=== PATIENT | male | born 1970 | race Caucasian/White ===

== ENCOUNTER 2018-08-03 08:05 | Emergency (ER) | payer BC ==
--- NOTE | 2018-08-03 08:45 | EDPHYS ---
Physician Documentation [facility] Name: El Zaidi Age: 47 yrs Sex: Male : 1970 Arrival Date: 08/03/2018 Time: 08:10 Bed 18 Private MD: Mehul Millan ED Physician El Avina HPI: 08/03 08:28 This 47 yrs old Male presents to ER via Ambulatory with complaints of Back jr8 Pain, Leg Pain. 08:28 The patient presents with pain that is acute. The symptoms are located in the low back. jr8 Onset: The symptoms/episode began/occurred acutely, yesterday. radiation to right leg. Associated signs and symptoms: The patient has no apparent associated signs or symptoms. The problem was sustained from unknown cause. Modifying factors: The patient symptoms are alleviated by remaining still, the patient symptoms are aggravated by movement. Severity of symptoms: At their worst the symptoms were mild, in the emergency department the symptoms are unchanged. The patient has not experienced similar symptoms in the past. The patient has not recently seen a physician. denies trauma. Historical: - Allergies: 08:13 No Known Allergies; aa5 - PMHx: 08:13 Hypertension; aa5 - PSHx: 08:13 None; aa5 - Immunization history:: Flu vaccine is up to date. - Social history:: Smoking status: Patient/guardian denies using tobacco. - Ebola Screening: : No symptoms or risks identified at this time. ROS: 08:28 Eyes: Negative for injury, pain, redness, and discharge, ENT: Negative for injury, jr8 pain, and discharge, Neck: Negative for injury, pain, and swelling, Cardiovascular: Negative for chest pain, palpitations, and edema, Respiratory: Negative for shortness of breath, cough, wheezing, and pleuritic chest pain, Abdomen/GI: Negative for abdominal pain, nausea, vomiting, diarrhea, and constipation, MS/Extremity: Negative for injury and deformity, Skin: Negative for injury, rash, and discoloration, Neuro: Negative for headache, weakness, numbness, tingling, and seizure. 08:28 Back: Positive for pain at rest, pain with movement, radiated pain, of the right low back. Exam: 08:28 Cardiovascular: Regular rate and rhythm with a normal S1 and S2. No gallops, murmurs, jr8 or rubs. Normal PMI, no JVD. No pulse deficits. Respiratory: Lungs have equal breath sounds bilaterally, clear to auscultation and percussion. No rales, rhonchi or wheezes noted. No increased work of breathing, no retractions or nasal flaring. Abdomen/GI: Soft, non-tender, with normal bowel sounds. No distension or tympany. No guarding or rebound. No evidence of tenderness throughout. Skin: Warm, dry with normal turgor. Normal color with no rashes, no lesions, and no evidence of cellulitis. MS/ Extremity: Pulses equal, no cyanosis. Neurovascular intact. Full, normal range of motion. Neuro: Awake and alert, GCS 15, oriented to person, place, time, and situation. Cranial nerves II-XII grossly intact. Motor strength 5/5 in all extremities. Sensory grossly intact. Cerebellar exam normal. Normal gait. 08:28 Back: pain, that is mild, of the right low back, ROM is painful, with all movement, normal spinal alignment noted, vertebral tenderness, is not appreciated. Vital Signs: 08:12 BP 155 / 84; Pulse 80; Resp 18 S; Temp 97.8(TE); Pulse Ox 95% on R/A; Weight 127.01 kg aa5 (R); Height 6 ft. 3 in. (190.50 cm) (R); Pain 0/10; 08:12 Body Mass Index 35.00 (127.01 kg, 190.50 cm) aa5 08:12 Pt reports pain only with movement aa5 MDM: 08:22 Patient medically screened. jr8 08:28 Data reviewed: vital signs, nurses notes, lab test result(s), and as a result, I will jr8 discharge patient. Data interpreted: Pulse oximetry: on room air is 95 %. Interpretation: normal. Counseling: I had a detailed discussion with the patient and/or guardian regarding: the historical points, exam findings, and any diagnostic results supporting the discharge/admit diagnosis, lab results, the need for outpatient follow up, a family practitioner, to return to the emergency department if symptoms worsen or persist or if there are any questions or concerns that arise at home. 08:42 ED course: Urine clear of blood but noticed 1+ glucose present. Discussed with patient jrMagda that his fingerstick was elevated especially if he had not eaten since yesterday. Needs to follow up with PCP for A1c and glucose test. 08/03 08:40 Order name: Urine Dipstick--Ancillary (enter results) eb 08/03 08:28 Order name: Urine Dipstick-Ancillary (obtain specimen); Complete Time: 08:41 jr8 08/03 08:41 Order name: Finger Stick; Complete Time: 08:41 aa5 Administered Medications: No medications were administered Point of Care Testing: Blood Glucose: 08:41 Blood Glucose: 159 mg/dL; aa5 08:41 Pt reports he has not eaten today. PA notified aa5 Ranges: Critical Glucose Levels:Adult <50 mg/dl or >400 mg/dl <40 mg/dl or >180 mg/dl Disposition: 10:34 Co-signature as Attending Physician, El Avina MD I agree with the assessment and kdr plan of care. Disposition: 08/03/18 08:45 Discharged to Home. Impression: Low back pain, Radiculopathy, lumbar region, Elevated blood glucose level. - Condition is Stable. - Discharge Instructions: Back Pain, Adult, Musculoskeletal Pain, Back Exercises, Dobd-bh-[id number], Heat Therapy. - Prescriptions for Ibuprofen 800 mg Oral Tablet - take 1 tablet by ORAL route every 12 hours As needed take with food; 20 tablet. Cyclobenzaprine 10 mg Oral Tablet - take 1 tablet by ORAL route every 8 hours As needed; 30 tablet. - Medication Reconciliation Form, Thank You Letter, Antibiotic Education, Prescription Opioid Use form. - Follow up: Mehul Millan MD; When: 2 - 3 days; Reason: Recheck today's complaints, Continuance of care, Re-evaluation by your physician. - Problem is new. - Symptoms have improved. Signatures: Dispatcher [employer] EDMS El Avina MD MD [facility] Pat Loredo RN RN aa5 Chu White PA PA jr8 Corrections: (The following items were deleted from the chart) 09:00 08:45 08/03/2018 08:45 Discharged to Home. Impression: Low back pain; Radiculopathy, aa5 lumbar region; Elevated blood glucose level. Condition is Stable. Forms are Medication Reconciliation Form, Thank You Letter, Antibiotic Education, Prescription Opioid Use. Follow up: Mehul Millan; When: 2 - 3 days; Reason: Recheck today's complaints, Continuance of care, Re-evaluation by your physician. Problem is new. Symptoms have improved. jr8
--- NOTE | 2018-08-03 08:45 | ER ---
Nurse's Notes [facility] Name: El Zaidi Age: 47 yrs Sex: Male : 1970 Arrival Date: 08/03/2018 Time: 08:10 Bed 18 Private MD: Mehul Millan Diagnosis: Low back pain;Radiculopathy, lumbar region;Elevated blood glucose level Presentation: 08/03 08:12 Presenting complaint: Patient states: right hip pain and right low back pain radiating aa5 down right leg that began yesterday. Pt denies any known injury. 08:12 Transition of care: patient was not received from another setting of care. Onset of aa5 symptoms was July 2018. Risk Assessment: Do you want to hurt yourself or someone else? Patient reports no desire to harm self or others. Initial Sepsis Screen: Does the patient meet any 2 criteria? No. Patient's initial sepsis screen is negative. Does the patient have a suspected source of infection? No. Patient's initial sepsis screen is negative. Care prior to arrival: None. 08:12 Method Of Arrival: Ambulatory aa5 08:12 Acuity: DEBORA 4 aa5 Historical: - Allergies: 08:13 No Known Allergies; aa5 - PMHx: 08:13 Hypertension; aa5 - PSHx: 08:13 None; aa5 - Immunization history:: Flu vaccine is up to date. - Social history:: Smoking status: Patient/guardian denies using tobacco. - Ebola Screening: : No symptoms or risks identified at this time. Screenin:15 Abuse screen: Denies threats or abuse. Nutritional screening: No deficits noted. aa5 Tuberculosis screening: No symptoms or risk factors identified. Fall Risk None identified. Assessment: 08:15 General: Appears comfortable, Behavior is calm, cooperative. Pain: Complains of pain in aa5 right hip and right low back Pain does not radiate. Pain currently is 0 out of 10 on a pain scale. at worst was 6 out of 10 on a pain scale. Quality of pain is described as sharp, throbbing, Pain began 1 day ago. Is intermittent, Aggravated by increased activity, repositioning. Neuro: Level of Consciousness is awake, alert, obeys commands, Oriented to person, place, time, situation. Cardiovascular: Heart tones S1 S2 present Rhythm is regular. Respiratory: Airway is patent Respiratory effort is even, unlabored, Respiratory pattern is regular, symmetrical. GI: No signs and/or symptoms were reported involving the gastrointestinal system. : No signs and/or symptoms were reported regarding the genitourinary system. Denies burning with urination, inability to void. EENT: No signs and/or symptoms were reported regarding the EENT system. Derm: Skin is pink, warm \T\ dry. Musculoskeletal: Range of motion: intact in all extremities. 09:00 Reassessment: Patient is alert, oriented x 3, equal unlabored respirations, skin aa5 warm/dry/pink. Vital Signs: 08:12 BP 155 / 84; Pulse 80; Resp 18 S; Temp 97.8(TE); Pulse Ox 95% on R/A; Weight 127.01 kg aa5 (R); Height 6 ft. 3 in. (190.50 cm) (R); Pain 0/10; 08:12 Body Mass Index 35.00 (127.01 kg, 190.50 cm) aa5 08:12 Pt reports pain only with movement aa5 ED Course: 08:10 Patient arrived in ED. mr 08:10 Mehul Millan MD is Private Physician. mr 08:12 Arm band placed on Patient placed in an exam room, on a stretcher. aa5 08:12 Patient has correct armband on for positive identification. Placed in gown. Bed in low aa5 position. Call light in reach. Side rails up X2. 08:14 Pat Loredo, RN is Primary Nurse. aa5 08:15 Triage completed. aa5 08:22 Chu White PA is PHCP. jr8 08:22 El Avina MD is Attending Physician. jr8 08:44 Mehul Millan MD is Referral Physician. jr8 09:00 No provider procedures requiring assistance completed. aa5 09:00 Patient did not have IV access during this emergency room visit. aa5 Administered Medications: No medications were administered Point of Care Testing: Blood Glucose: 08:41 Blood Glucose: 159 mg/dL; aa5 08:41 Pt reports he has not eaten today. PA notified aa5 Ranges: Outcome: 08:45 Discharge ordered by . jr8 08:59 Discharged to home ambulatory. aa5 08:59 Condition: stable 08:59 Discharge instructions given to patient, Instructed on discharge instructions, follow up and referral plans. medication usage, Demonstrated understanding of instructions, follow-up care, medications, Prescriptions given X 2. 09:00 Patient left the ED. aa5 Signatures: Ursula Garcia Audri RN RN aa5 Chu White PA PA jr8 Corrections: (The following items were deleted from the chart) 09:14 09:13 No provider procedures requiring assistance completed. aa5 aa5
[2018-08-03 09:58] LABS: Urine Blood NEGATIVE (NEG); Urine Glucose 1+ (NEG); Urine Protein NEGATIVE (NEG); Urine Specific Gravity 1.015 (1.005-1.030)
== END 2018-08-03 09:00 | disposition home or self-care (01) ==
LOC: ER 08:05
DX: M54.16 Radiculopathy, lumbar region (principal); R73.9 Hyperglycemia, unspecified; I10 Essential (primary) hypertension
CPT/HCPCS: 81003; 82962; 99282

== ENCOUNTER 2022-07-14 07:29 | Emergency (ER) | payer BC, SELFPAY ==
--- NOTE | 2022-07-14 08:57 | RAD REPORT ---
EXAM DESCRIPTION: RAD - Hip Right 2 View - 07/14/2022 8:44 am CLINICAL HISTORY: PAIN COMPARISON: No comparisons FINDINGS: [id number] arthritic changes affect the right hip. Crescentic lucent and sclerotic 2 4 mm area along the superior aspect of the right femoral head likely represents avascular necrosis.
--- NOTE | 2022-07-14 09:19 | ER ---
Nurse's Notes [facility] Name: El Zaidi Age: 51 yrs Sex: Male : 1970 Arrival Date: 07/14/2022 Time: 07:32 Bed 11 Private MD: Diagnosis: Avascular necrosis right hip;Pain in right hip;Monoarthritis, not elsewhere classified, right hip;Essential (primary) hypertension Presentation: 07/14 07:36 Chief complaint: Patient states: sharp intermittent right hip pain that radiates to tp1 knee. Pain started 6 months ago and worsens with ambulation. pain rated 10/10. denies trauma. Coronavirus screen: Vaccine status: Patient reports receiving the 2nd dose of the covid vaccine. Ebola Screen: Patient negative for fever greater than or equal to 101.5 degrees Fahrenheit, and additional compatible Ebola Virus Disease symptoms Patient denies exposure to infectious person. Patient denies travel to an Ebola-affected area in the 21 days before illness onset. Initial Sepsis Screen: Does the patient meet any 2 criteria? No. Patient's initial sepsis screen is negative. Does the patient have a suspected source of infection? No. Patient's initial sepsis screen is negative. Risk Assessment: Do you want to hurt yourself or someone else? Patient reports no desire to harm self or others. Onset of symptoms was December 2021. 07:36 Method Of Arrival: Ambulatory tp1 07:47 Acuity: DEBORA 4 tp1 09:11 Acuity: DEBORA 3 jl7 Triage Assessment: 07:43 General: Appears in no apparent distress. uncomfortable, Behavior is calm, cooperative. tp1 Pain: Complains of pain in right hip Pain radiates to right knee Pain currently is 10 out of 10 on a pain scale. Quality of pain is described as sharp, Pain began 6 months. Musculoskeletal: Circulation, motion, and sensation intact. 07:47 Cardiovascular: Capillary refill < 3 seconds in left toes. tp1 Historical: - Home Meds: 07:43 losartan-hydrochlorothiazide 100-25 mg oral tab 1 tab once daily [Active]; atorvastatin tp1 40 mg oral tab 1 tab once daily [Active]; atenolol 100 mg oral tab 1 tab once daily [Active]; metformin 500 mg oral tab 2 times per day [Active]; - PMHx: 07:43 Diabetes mellitus; Hypertension; tp1 - Immunization history:: Client reports receiving the 2nd dose of the Covid vaccine. - Social history:: Smoking status: Patient denies any tobacco usage or history of. Screenin:57 Abuse screen: Denies threats or abuse. Nutritional screening: No deficits noted. jd3 Tuberculosis screening: No symptoms or risk factors identified. Fall Risk Ambulatory Aid- None/Bed Rest/Nurse Assist (0 pts). Gait- Normal/Bed Rest/Wheelchair (0 pts) Mental Status- Oriented to own ability (0 pts). Total Peters Fall Scale indicates No Risk (0-24 pts). Assessment: 07:56 General: Appears in no apparent distress. comfortable, Behavior is calm, cooperative, jd3 appropriate for age. Pain: Complains of pain in right hip Pain radiates to right quadriceps and right knee Quality of pain is described as radiating, sharp, Alleviated by medications, repositioning. Neuro: Hernandez Agitation-Sedation Scale (RASS): 0 - Alert and Calm Level of Consciousness is awake, alert, obeys commands, Oriented to person, place, time, situation. Cardiovascular: Capillary refill < 3 seconds Patient's skin is warm and dry. Respiratory: Airway is patent Respiratory effort is even, unlabored, Respiratory pattern is regular, symmetrical. GI: No signs and/or symptoms were reported involving the gastrointestinal system. : No signs and/or symptoms were reported regarding the genitourinary system. EENT: No signs and/or symptoms were reported regarding the EENT system. Derm: Skin is intact, Skin is dry, Skin is normal, Skin temperature is warm. Musculoskeletal: Circulation, motion, and sensation intact. Range of motion: intact in all extremities. 08:44 Reassessment: Patient appears in no apparent distress at this time. Patient and/or jd3 family updated on plan of care and expected duration. Pain level reassessed. Patient is alert, oriented x 3, equal unlabored respirations, skin warm/dry/pink. 09:17 Reassessment: Patient appears in no apparent distress at this time. Patient and/or jd3 family updated on plan of care and expected duration. Pain level reassessed. Patient is alert, oriented x 3, equal unlabored respirations, skin warm/dry/pink. provider at bedside discussing plan of care. Vital Signs: 07:36 BP 164 / 95; Pulse 96; Resp 16; Temp 98.0; Pulse Ox 99% ; tp1 09:17 BP 142 / 90; Pulse 84; Resp 16; Pulse Ox 97% on R/A; jd3 ED Course: 07:32 Patient arrived in ED. rg4 07:36 Jese Chowdhury DO is Attending Physician. ms3 07:43 Arm band placed on. tp1 07:47 Triage completed. tp1 07:50 Gerardo Gauthier, RN is Primary Nurse. jd3 07:58 Patient has correct armband on for positive identification. Bed in low position. Call jd3 light in reach. Side rails up X 1. Pulse ox on. NIBP on. 08:46 Hip Right 2 View XRAY In Process Unspecified. EDMS 09:16 Manpreet Pruett MD is Referral Physician. ms3 09:26 No provider procedures requiring assistance completed. Patient did not have IV access jd3 during this emergency room visit. Administered Medications: No medications were administered Medication: 07:57 VIS not applicable for this client. jd3 Outcome: 09:18 Discharge ordered by . ms3 09:26 Discharged to home ambulatory. jd3 09:26 Condition: stable 09:26 Discharge instructions given to patient, Instructed on discharge instructions, follow up and referral plans. medication usage, Demonstrated understanding of instructions, follow-up care, medications, Prescriptions given X 1. 09:26 Patient left the ED. jd3 Signatures: Dispatcher [employer] EDCarol Morfin rg4 Maddi Elmore RN RN jl7 Gerardo Gauthier RN RN jd3 Jese Chowdhury DO DO ms3 Marina Salvador RN RN tp1 Corrections: (The following items were deleted from the chart) 07:51 07:36 Chief complaint: Patient states: sharp intermittent hip pain that radiates to tp1 knee. Pain started 6 months ago and worsens with ambulation. pain rated 10/10. denies trauma. tp1
--- NOTE | 2022-07-14 09:19 | EDPHYS ---
Physician Documentation [facility] Name: El Zaidi Age: 51 yrs Sex: Male : 1970 Arrival Date: 07/14/2022 Time: 07:32 Bed 11 Private MD: ED Physician Jese Chowdhury HPI: 07/14 07:47 This 51 yrs old Male presents to ER via Ambulatory with complaints of Leg Pain. ms3 07:47 51-year-old male with past medical history of diabetes, hypertension, hyperlipidemia ms3 presents for right hip pain that has been ongoing for 6 months. Patient states while sitting his pain is a 0/10. Patient states pain is worse when standing and his pain increases to a 10/10. Patient denies fevers, chills, nausea, vomiting, claudication. Patient denies trauma to the right hip.. Historical: - Home Meds: 07:43 losartan-hydrochlorothiazide 100-25 mg oral tab 1 tab once daily [Active]; atorvastatin tp1 40 mg oral tab 1 tab once daily [Active]; atenolol 100 mg oral tab 1 tab once daily [Active]; metformin 500 mg oral tab 2 times per day [Active]; - PMHx: 07:43 Diabetes mellitus; Hypertension; tp1 - Immunization history:: Client reports receiving the 2nd dose of the Covid vaccine. - Social history:: Smoking status: Patient denies any tobacco usage or history of. ROS: 07:47 Constitutional: Negative for fever, and chills. Neck: Negative for injury, pain, and ms3 swelling, Cardiovascular: Negative for chest pain, and palpitations. Respiratory: Negative for shortness of breath, cough, wheezing, and pleuritic chest pain, Abdomen/GI: Negative for abdominal pain, nausea, vomiting, diarrhea, and constipation. 07:47 MS/extremity: Positive for Right hip pain. 07:47 All other systems are negative. Exam: 07:47 Constitutional: This is a well developed, well nourished patient who is awake, alert, ms3 and in no acute distress. Neck: Trachea midline, no cervical lymphadenopathy. Supple, full range of motion without nuchal rigidity, or vertebral point tenderness. No Meningismus. Chest/axilla: Normal chest wall appearance and motion. Nontender with no deformity. Cardiovascular: Regular rate and rhythm with a normal S1 and S2. No gallops, murmurs, or rubs. Normal PMI, no JVD. No pulse deficits. Respiratory: Lungs have equal breath sounds bilaterally, clear to auscultation and percussion. No rales, rhonchi or wheezes noted. No increased work of breathing, no retractions or nasal flaring. Abdomen/GI: Soft, non-tender, with normal bowel sounds. No distension or tympany. No guarding or rebound. No evidence of tenderness throughout. Skin: Warm, dry with normal turgor. Normal color with no rashes, no lesions, and no evidence of cellulitis. 07:47 Musculoskeletal/extremity: Extremities: noted in the Right hip: There is no evidence of contusion, decreased ROM, deformity, ecchymosis, erythema, swelling, tenderness. Vital Signs: 07:36 BP 164 / 95; Pulse 96; Resp 16; Temp 98.0; Pulse Ox 99% ; tp1 09:17 BP 142 / 90; Pulse 84; Resp 16; Pulse Ox 97% on R/A; jd3 MDM: 07:46 Patient medically screened. ms3 07:47 Differential diagnosis: Arthritis versus bursitis versus tendinitis. ms3 09:18 Data reviewed: vital signs, nurses notes, radiologic studies, plain films, and as a ms3 result, I will discharge patient. Counseling: I had a detailed discussion with the patient and/or guardian regarding: the historical points, exam findings, and any diagnostic results supporting the discharge/admit diagnosis, radiology results, the need for outpatient follow up, to return to the emergency department if symptoms worsen or persist or if there are any questions or concerns that arise at home. ED course: Discussed xray findings with patient. Symptoms have been ongoing for 6 months on repeat discussion with patient. patient to follow up with orthopedics as discussed. Discussed with patient he would likely need MRI of his right hip. Patient understands agrees with plan. All questions were answered. Return precautions discussed include worsening symptoms, or any other concerns. 07/14 07:49 Order name: Hip Right 2 View XRAY; Complete Time: 09:07 ms3 Administered Medications: No medications were administered Disposition Summary: 07/14/22 09:18 Discharge Ordered Location: Home ms3 Condition: Stable ms3 Diagnosis - Avascular necrosis right hip ms3 - Pain in right hip ms3 - Monoarthritis, not elsewhere classified, right hip ms3 - Essential (primary) hypertension ms3 Followup: ms3 - With: Manpreet Pruett MD - When: 1 - 2 days - Reason: Recheck today's complaints Discharge Instructions: - Discharge Summary Sheet ms3 - Joint Pain ms3 - Avascular Necrosis ms3 Forms: - Work release form jd3 - Medication Reconciliation Form ms3 - Thank You Letter ms3 - Antibiotic Education ms3 - Prescription Opioid Use ms3 Prescriptions: - Ibuprofen 600 mg Oral Tablet - take 1 tablet by ORAL route every 6 hours As needed take with food; 30 tablet; ms3 Refills: 0, Product Selection Permitted Signatures: Dispatcher [employer] EDJese Grimaldo DO DO ms3 Marina Salvador RN RN tp1
[2022-07-14 09:33] VITALS: TEMP 98
[2022-07-14 09:35] VITALS: BP 142/90; O2SAT 97
== END 2022-07-14 09:26 | disposition home or self-care (01) ==
LOC: ER 07:29
DX: M87.851 Other osteonecrosis, right femur (principal); M13.151 Monoarthritis, not elsewhere classified, right hip; E11.9 Type 2 diabetes mellitus without complications; I10 Essential (primary) hypertension

== ENCOUNTER 2023-03-08 06:03 | Observation (INO) | payer BC, SELFPAY ==
--- NOTE | 2023-01-21 13:14 | EKG ---
Test Date: 2023-01-21 Test Time: 10:45:15 Insulation Professional: MICHEL MEASUREMENT RESULTS: Intervals: Rate: 93 NH: QRSD: 82 QT: 356 QTc: 442 [place]: P: NH: QRS: -14 T: 60 INTERPRETIVE STATEMENTS: Atrial flutter with variable AV block Abnormal ECG Compared to ECG 05/19/2005 15:45:00 Sinus rhythm no longer present Electronically Signed On 01-21-23 13:13:55 ELEVATOR TENDER by Parveen Brewer
--- NOTE | 2023-03-03 09:39 | RAD REPORT ---
EXAM DESCRIPTION: RAD - Chest Pa And Lat (2 Views) - 03/03/2023 9:31 am CLINICAL HISTORY: Pre op pending hip replacement Chest pain. COMPARISON: <Comparisons> FINDINGS: The lungs are clear. The heart is normal in size. No displaced fractures. IMPRESSION: No acute or concerning finding suspected. The USPSTF recommends annual screening for lung cancer with low-dose CT (LDCT) in adults aged 50 to 80 years who have a 20 pack-year smoking history and currently smoke or have quit within the past 15 years.
[2023-03-03 09:42] LABS: Specific Gravity < 1.005 (1.005-1.030); Urine Bilirubin NEGATIVE (Negative); Urine Blood Negative (Negative); Urine Clarity Clear (Clear); Urine Color Colorless (Yellow); Urine Glucose 4+ (Over) (Negative); Urine Protein NEGATIVE (Negative); Urine Urobilinogen Normal (Normal); Urine pH 5.5 (5.0-7.0)
[2023-03-03 09:43] LABS: Absolute Lymphocytes (CBC) 2.4 K/uL (0.7-4.9); Hematocrit 41.4 % (39.6-49.0); Lymphocytes % 28.4 % (15.3-44.8); MCV 95.5 fL (80-100); MPV 7.6 fL (7.6-11.3); RBC Red Blood Cell Count 4.33 M/uL (4.33-5.43)
[2023-03-03 09:46] LABS: Protime INR 0.95
[2023-03-03 10:10] LABS: Albumin 4.2 g/dL (3.4-5.0); Bilirubin Total 0.4 mg/dL (0.2-1.0); Potassium 4.1 mEq/L (3.5-5.1); Protein, Total 8.5 g/dL (6.4-8.2)
[2023-03-07 10:59] LABS: SARS-CoV-2 Antigen Rapid Res Negative (Negative)
[2023-03-08] MEDS ORDERED: CELECOXIB 100 MG CAPSULE ONE (06:26)
[2023-03-08] MEDS ORDERED: CEFAZOLIN SODIUM 2 GM/VIAL ONE (06:27)
[2023-03-08] MEDS ORDERED: GABAPENTIN 100 MG CAP ONE (06:27)
[2023-03-08] MEDS ORDERED: NA CHLORIDE 0.9% 1,000 ML ONE ×2 (06:28→08:35)
[2023-03-08] MEDS ORDERED: ACETAMINOPHEN 500 MG TAB ONE (06:28)
[2023-03-08] MEDS ORDERED: Oxycodone HCl/Acetaminophen 1 TAB TAB ONE (06:28)
[2023-03-08] MEDS ORDERED: BUPIVACAINE 0.75% (PF) 2 ML SP ONE (06:43)
[2023-03-08] MEDS ORDERED: propofoL 200 MG/20 ML VIAL IV ONE ×2 (06:46→07:29)
[2023-03-08] MEDS ORDERED: MIDAZOLAM HCL 2 MG/2 ML INJ ONE (06:47)
[2023-03-08] MEDS ORDERED: MORPHINE SULFATE/PF 1 MG/ML (10 ML AMP) ONE (06:47)
[2023-03-08] MEDS ORDERED: EPHEDRINE SULF 50 MG/ML VIAL ONE ×2 (06:47→08:17)
[2023-03-08] MEDS ORDERED: LIDOCAINE 2% MPF 5 ML VIAL ONE ×2 (06:47→07:16)
[2023-03-08] MEDS ORDERED: EPINEPHRINE/PF 1 MG/ML AMP ONE (06:56)
[2023-03-08] MEDS ORDERED: ONDANSETRON 4 MG/2 ML VIAL ONE (07:03)
[2023-03-08] MEDS: TRANEXAMIC ACID 1,000 MG/10 ML VIAL IV ONE ×2 (07:15→08:33)
[2023-03-08] MEDS ORDERED: Phenylephrine HCl 10 MG/ML 1 ML VIAL ONE ×2 (07:28→11:35)
[2023-03-08] MEDS ORDERED: FENTANYL CITR 100 MCG/2 ML ONE (07:52)
--- NOTE | 2023-03-08 09:39 | RAD REPORT ---
EXAM DESCRIPTION: RAD - Hip Right 1 View - 03/08/2023 9:03 am CLINICAL HISTORY: TOTAL HIP REPLACEMENT COMPARISON: Hip Right 2 View dated 07/14/2022; Chest Pa And Lat (2 Views) dated 03/03/2023 TECHNIQUE: Right hip, cross-table view. FINDINGS: Immediate postsurgical changes of right hip arthroplasty. Increased spacing between the fe moral stem and acetabular components of the arthroplasty hardware. Whether this relates to an interpo sed radiolucent arthroplasty component is uncertain. Expected soft tissue gas. IMPRESSION: As above.
[2023-03-08] MEDS ORDERED: DOCUSATE NA 100 MG CAP PO PRN (09:41)
--- NOTE | 2023-03-08 09:41 | P.BOP ---
Preoperative diagnosis: right hip avn/arthritis Postoperative diagnosis: same Primary procedure: right total hip arthoplasty Estimated blood loss: 150 ccs Anesthesia: General Transferred to: Recovery Room Condition: Good
[2023-03-08 10:22] LABS: Hematocrit 38.2 % (39.6-49.0)
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
[2023-03-08] MEDS ORDERED: methocarbamoL 500 MG TAB PO PRN (11:00)
[2023-03-08] MEDS ORDERED: ONDANSETRON 4 MG/2 ML VIAL IV PRN (11:02)
--- NOTE | 2023-03-08 11:06 | P.CNS ---
Date of Consult: 03/08/23 Reason for Consult: Medical management. Requesting Physician: Gio Sotelo Chief Complaint: Right hip pain History of Present Illness: Patient is a 52-year-old male with a past medical history significant for hypertension, hyperlipidemia, DM 2, alcohol abuse who presents for a planned procedure with his orthopedic surgeon. Patient reported that he has been having right hip pain for the past 1 year. Patient has attempted treatment with medications but symptoms have become worse over time. Patient reported that his functional mobility has greatly reduced due to pain in the right hip. Patient reported that prior to procedure he was using a cane for ambulation. Patient rated pain before procedure as 8/10 in severity and described pain as aching quality. Patient denies any other signs and symptoms. Symptoms are aggravated by weight bearing relieved by nothing. Patient agreed with his surgeon for a right hip arthroplasty and patient presented to the hospital for the planned procedure As scheduled. Patient tolerated procedure and currently resting in bed Allergies No Known Allergies Allergy (Verified 03/08/23 06:48) Home Medications: Atenolol [Tenormin] 100 mg PO DAILY 03/08/23 Atorvastatin Calcium [Lipitor] 40 mg PO BEDTIME 03/08/23 Dapagliflozin Propanediol [Farxiga] 10 mg PO DAILY 03/08/23 Gabapentin 300 mg PO DAILY 03/08/23 Losartan/Hydrochlorothiazide [Losartan-Hctz 100-25 mg Tab] 1 each PO DAILY 03/08/23 Metformin ER [Glucophage ER] 500 mg PO BID 03/08/23 Semaglutide [Ozempic] 2 mg SQ EVERY 7TH DAY 03/08/23 Tramadol HCl [Ultram] 50 mg PO PRN 03/08/23 methocarbamoL [Methocarbamol] 500 mg PO PRN 03/08/23 - Past Medical/Surgical History Diabetic: Yes -: diabetes -: hypertension -: hyperlipidemia - Family History Father Medical History: Liver disease, Other (see notes) Notes: alcholism. passed age 40 Mother Medical History: Heart disease, Lung disease, Other (see notes) Notes: pacemaker, passed mid 60's - Social History Smoking Status: Never smoker Alcohol use: Yes CD- Drugs: No Caffeine use: Yes Place of Residence: Home Review of Systems General: Unremarkable Eyes: Unremarkable ENT: Unremarkable Respiratory: Unremarkable Cardiovascular: Unremarkable Gastrointestinal: Unremarkable Genitourinary: Unremarkable Musculoskeletal: Other (Right hip pain ) Integumentary: Unremarkable Neurological: Unremarkable Lymphatics: Unremarkable Physical Examination Temp Pulse Resp BP Pulse Ox 97.6 F 80 17 123/71 03/08/23 10:27 03/08/23 10:27 03/08/23 10:27 03/08/23 10:27 General: Alert, In no apparent distress, Oriented x3, Cooperative HEENT: Atraumatic, PERRLA, Mucous membr. moist/pink, EOMI, Sclerae nonicteric Neck: Supple, 2+ carotid pulse no bruit, No LAD, Without JVD or thyroid abnormality Respiratory: Clear to auscultation bilaterally, Normal air movement Cardiovascular: No edema, Regular rate/rhythm, Normal S1 S2 Capillary refill: <2 Seconds Gastrointestinal: Normal bowel sounds, Soft and benign, No tenderness Musculoskeletal: No clubbing, Tenderness (Right hip ) Integumentary: No rashes, Other (Right hip incision ) Neurological: Normal speech, Normal tone, Normal affect Lymphatics: No axilla or inguinal lymphadenopathy Laboratory Data (last 24 hrs) 03/08/23 10:10: Hgb 13.0 L, Hct 38.2 L Conclusions/Impression: -- Right hip avascular necrosis\osteoarthritis. Status post right total hip arthroplasty. We will manage pain on current pain medication regimen. Surgeon on board. We will further recommendation from surgeon. --DM2. BS monitoring with sliding scale insulin. --Hypertension. Stable. Continue home medication. --Hyperlipidemia. Continue statin. --Alcohol abuse. Patient reports drinking a six pack of beer every day. Alcohol withdrawal assessment protocol. -- Obesity. Likely secondary to excess calories intake. Patient counseled on weight reduction, diet and exercise therapy. --Elevated LFTs. Mild elevation in LFTs noted. Likely secondary to alcohol abuse. We will continue to monitor liver functions. Continue supportive care. --DVT prophylaxis with SCDs. Continue chemical prophylaxis in a.m. Physician Review: Patient Assessed, Agree with Above Assessment and Plan Critical Care: No
[2023-03-08 11:17] VITALS: BMI 36.9
[2023-03-08 13:53] LABS: Magnesium 1.9 mg/dL (1.6-2.4); Phosphorus 4.4 mg/dL (2.5-4.9)
[2023-03-08] MEDS ORDERED: INFLUENZA VACCINE (for 6+ mo) 0.5 ML DOSE IMVAC ONE (14:00)
[2023-03-08] MEDS: CEFAZOLIN 1 GM in NA CHLORIDE 0.9% 50 ML IVPB SCH (16:57)
--- NOTE | 2023-03-08 19:58 | OP ---
Date of Procedure: 03/08/2023 Surgeon: Gio Sotelo MD Preoperative Diagnosis: Right hip avascular necrosis with arthritic change and severe pain. Postoperative Diagnosis: Right hip avascular necrosis with arthritic change and severe pain. Procedure: Right total hip arthroplasty using the Kelli system with Accolade 2 stem and Douglas c up and dual mobility bearing with ceramic head. Estimated Blood Loss: 150 cc. Complications: There were no complications. Indications For Operation: Mr. Zaidi is a 52-year-old gentleman who came to see me with severe benjie n in his right hip. He has an MRI, which demonstrate AVN as well as a probable labral tear. He was sent to a hip clinical editor who evaluated him and felt that he had a significant amount of arthriti s and that cord decompression or labral repair would not be helpful and therefore, recommend a total hip arthroplasty. This is understood. This was explained to Mr. Zaidi. He is in tremendous pain and opts to have this done as soon as possible. Unfortunately, he does have some medical issues or p recautions and his surgery was delayed as this was worked out. He is now cleared for surgery and ris ks, benefits, and alternatives to this procedure again discussed and he states he understands things as presented and wished to proceed. Description Of Procedure: The patient was taken to the operating room, placed in a seated position. Spinal anesthesia was obtained by Anesthesia staff. Following this, he was then placed supine and g eneral anesthesia was obtained by Anesthesia staff. After this, he was rolled left side down and his right lower extremity was prepped and draped in usual sterile fashion for the procedure. Following this, a standard posterolateral incision was taken down carefully through skin and soft tissues. Met iculous hemostasis being maintained using Bovie electrocautery. This leads down to the fascia and a small stab wound was made in the fascia where the gluteal tendon was palpated to ensure we were at th e correct level. This was followed by division of the fascia until the gluteus christelle fibers were e ncountered, which was then curved gently backward and spread using finger pressure. After the sciati c nerve was palpated and protected and internally was placed, some degree of fat as well as the bursa was then removed to allow good visualization of the external rotators. His hip has limited mobility , especially with extension and internal rotation. However, we were able to take this down as the un it along with the capsule and this was tagged for later repair. After this, the hip was then disloca jordan and a standard neck cut was then performed. The head was sized using ring gauges and the acetabu lum was inspected. Any soft tissue or abnormal material in the acetabulum was then removed. The lab rum was removed and it was then reamed sequentially until there was good bleeding bone. After this, the cup was then placed and felt to have good fit and stability. The attention was then turned to th e femur where the punch box tender was used to lateralize this followed by canal-finding reamer followed by broaching. An x-ray was then taken, which demonstrates the cup appeared to be in good position, loo ks like the stem could go up another size. After this, the trial stem was removed and a 1 size large r stem was then placed, which appears to have good fit and fill with regard to cortical contact and a ppears to be stable to rotational and axial load. After this, the liner was then placed in the cup a nd gently hammered into place. The acetabulum was cleared from the debris and the final stem was the n placed to appropriate depth. It was then trialed with a standard ball. This did not have any shuc k. It was slightly limited in extension, but he was like this before. With full flexion, adduction, he has internal rotation approximately 35 to 40 degrees. Before dislocation it is felt that we shou ld not go any longer and felt to be appropriate. It maybe slightly long, but it should be noted he d oes have AVN on his contralateral side apparently by MRI, so decision was made to provide greater sta bility and decision made to go forward with the standard ball. Standard ball was then applied. It w as then reduced and has stability in the same directions. A jet lavage was used to clean the surgica l site and the external rotators and capsule were then repaired back to the greater trochanter via arelis ne tunnels as well as passing through slightly superior to the trochanter. After this, it was again irrigated and the fascia closed in a watertight fashion using heavy Vicryl sutures. It was again, ir rigated and the skin was closed using interrupted Vicryl sutures, followed by austin. The patient was then placed in Aquacel dressing and taken to re covery room in good condition. /REBECCA Voice ID: [id number] Report ID: [id number]
[2023-03-08] MEDS ORDERED: ATORVASTATIN 40 MG TAB PO SCH (21:00)
[2023-03-08] MEDS: HYDROCODONE/APAP 7.5/325 MG TAB PO PRN (21:14)
[2023-03-09] MEDS: CEFAZOLIN 1 GM in NA CHLORIDE 0.9% 50 ML IVPB SCH ×2 (00:28→09:58)
[2023-03-09] MEDS: HYDROCODONE/APAP 7.5/325 MG TAB PO PRN ×3 (01:20→13:49)
[2023-03-09 02:23] LABS: Specific Gravity 1.021 (1.005-1.030); Urine Bacteria <20 /HPF (<20); Urine Bilirubin NEGATIVE (Negative); Urine Blood Trace (Negative); Urine Clarity Clear (Clear); Urine Color Light-Yellow (Yellow); Urine Glucose 4+ (Over) (Negative); Urine Mucus Slight /HPF (None Seen); Urine Protein TRACE (Negative); Urine Urobilinogen Normal (Normal)
[2023-03-09 04:08] LABS: Hematocrit 34.7 % (39.6-49.0); MCV 95.3 fL (80-100); MPV 7.3 fL (7.6-11.3); RBC Red Blood Cell Count 3.65 M/uL (4.33-5.43)
[2023-03-09 04:29] LABS: Albumin 3.4 g/dL (3.4-5.0); Potassium 3.7 mEq/L (3.5-5.1)
[2023-03-09 05:42] VITALS: TEMP 97.1
[2023-03-09] MEDS ORDERED: POTASSIUM CL SA 10 MEQ TAB PO ONE (09:00)
[2023-03-09] MEDS ORDERED: GABAPENTIN 300 MG CAP PO SCH (09:00)
[2023-03-09] MEDS ORDERED: atenoloL 50 MG TAB PO SCH (09:00)
[2023-03-09] MEDS ORDERED: ENOXAPARIN 40 MG/0.4 ML SQ SCH (09:00)
[2023-03-09] MEDS ORDERED: LOSARTAN/HCTZ 50-12.5 PO SCH (09:00)
[2023-03-09 09:07] VITALS: O2SAT 94
[2023-03-09 09:59] VITALS: BP 133/60
--- NOTE | 2023-03-09 12:26 | RAD REPORT ---
EXAM DESCRIPTION: US - Liver Only - 03/09/2023 9:42 am CLINICAL HISTORY: Elevated liver function test enzymes COMPARISON: 2018 FINDINGS: The liver has an increased echotexture. Hepatopetal flow. A lesion is not visualized. Live r appears mildly enlarged The spleen measures 12.6 centimeters. Echotexture normal Small amount of ascites IMPRESSION: Mild hepatomegaly Borderline splenomegaly Increased hepatic echotexture presumably fatty infiltration
--- NOTE | 2023-03-09 14:20 | P.PN ---
Subjective Date of Service: 03/09/23 Chief Complaint: Right hip pain POD #1 right total hip arthoplasty. He is doing well this morning. His pain is well controlled. He has been working well with PT. He denies any chest pain, shortness of breath, abdominal pain, nausea, or vomiting. Review of Systems 10-point ROS is otherwise unremarkable Musculoskeletal: Leg Pain (right hip) Physical Examination - Vital Signs Temperature: 97.1 F Blood Pressure: 133/60 Pulse: 98 Respirations: 17 Pulse Ox (%): 94 - Physical Exam General: Alert, In no apparent distress, Oriented x3 HEENT: Atraumatic, Mucous membr. moist/pink, Sclerae nonicteric Neck: JVD not distended Respiratory: Clear to auscultation bilaterally, Normal air movement Cardiovascular: No edema, Regular rate/rhythm, Normal S1 S2, No gallops, No rubs, No murmurs Gastrointestinal: Normal bowel sounds, Soft and benign, Non-distended, No tenderness, No rebound, No guarding Musculoskeletal: Other (right hip surgical site is clean, dry, intact) Integumentary: No rashes Neurological: Normal speech, Normal affect - Studies Laboratory Data (last 24 hrs) 03/09/23 07:37: Triglycerides 136, Cholesterol 142, HDL Cholesterol 38 L, Cholesterol/HDL Ratio 3.74 03/09/23 03:40: Sodium 131 L, Potassium 3.7, BUN 25 H, Creatinine 1.14, Glucose 187 H, Total Bilirubin 1.0, AST 152 H, ALT 91 H, Alkaline Phosphatase 74 03/09/23 03:40: WBC 10.40, Hgb 11.9 L, Hct 34.7 L, Plt Count 117 L 03/08/23 16:50: Hgb 12.8 L, Hct 37.0 L Assessment And Plan - Plan DIAGNOSES: # Right Hip Avascular Necrosis/Osteoarthritis s/p Total Right Hip Arthroplasty # Hyperglycemia in Type II Diabetes Mellitus # Elevated LFTs in Alcohol Use Disorder # Hypertension # Hyperlipidemia # Obesity - BMI 36.9 kg/m2 # Microscopic Hematuria RECOMMENDATIONS: - He seems to be improving with PT, consider discharge with Home Health - PRN pain control - For elevated LFTs - obtained lipid panel, Hgb A1c, HCV, and liver ultrasound - He was counseled to follow-up with his PCP (Dr. Millan) for further evaluation - he verbalized understanding - He was noted to have microscopic hematuria, which may be traumatic from recent Cole catheter insertion - He was counseled on the potential for an underlying urologic malignancy and to follow-up with his PCP (Dr. Millan) for further evaluation - he verbalized understanding - Also counseled on alcohol cessation - resources provided Thank you for this consultation. Recommendations have been discussed with Dr. Sotelo. Internal Medicine will continue to follow along while hospitalized. Marcelo Macias M.D.
== END 2023-03-09 16:03 | disposition home or self-care (01) ==
LOC: OR 06:03 → 2ND 10:27
PROVIDERS: ADMIT Orthopaedic Surgery; ATTEND Orthopaedic Surgery
PROC: 0SR903A Replacement of Right Hip Joint with Ceramic Synthetic Substitute, Uncemented, Open Approach (ICD-10-PCS; principal; 2023-03-08 07:00)
DX: M16.11 Unilateral primary osteoarthritis, right hip (principal); M25.551 Pain in right hip; I10 Essential (primary) hypertension; E78.5 Hyperlipidemia, unspecified; E11.9 Type 2 diabetes mellitus without complications; F10.10 Alcohol abuse, uncomplicated; E66.9 Obesity, unspecified; Z68.36 Body mass index [BMI] 36.0-36.9, adult
CPT/HCPCS: 27130; 93005; 85025 ×2; 81001; 36415 ×4; 86900; 83735; 86850; 84100; 85610; 80061; 86901; 82947 ×8; 88305; 88311; 85730; 86920; 85018 ×2; 85014 ×2; 81003; 83036; 80053 ×2; 86803; 71046; 73501; 76705; 97110 ×2; 97116 ×2; 97161; 97530; 87811; J2704 ×2; J0171; J2370; J2001 ×2; J1650; J2250; J3010; J2405 ×2; J7030 ×2; J0690 ×3; 88304; G0378

== ENCOUNTER 2023-03-23 12:32 | Inpatient (IN) | payer BC ==
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
[2023-03-23 13:25] LABS: Absolute Lymphocytes (CBC) 2.4 K/uL (0.7-4.9); Hematocrit 39.4 % (39.6-49.0); Lymphocytes % 25.7 % (15.3-44.8); MCV 94.3 fL (80-100); MPV 6.4 fL (7.6-11.3); Protime INR 1.42; RBC Red Blood Cell Count 4.17 M/uL (4.33-5.43)
[2023-03-23 13:41] LABS: Albumin 4.1 g/dL (3.4-5.0); Bilirubin Direct 0.2 mg/dL (0-0.2); Bilirubin Total 0.6 mg/dL (0.2-1.0); Magnesium 1.9 mg/dL (1.6-2.4); Potassium 3.9 mEq/L (3.5-5.1); Protein, Total 8.6 g/dL (6.4-8.2); Troponin High Sensitivity 7.6 pg/mL (<58.9)
--- NOTE | 2023-03-23 14:09 | RAD REPORT ---
EXAM DESCRIPTION: CT - Chest For Pe Angio - 03/23/2023 1:57 pm CLINICAL HISTORY: Chest pain. DYSPNEA COMPARISON: <Comparisons> TECHNIQUE: CT angiogram of the pulmonary arteries was performed with MIP. All CT scans are performed using dose optimization technique as appropriate and may include automated exposure control or mA/KV adjustment according to patient size. FINDINGS: No evidence of pulmonary thromboembolism. No acute aortic finding demonstrated. The lungs are clear except for linear atelectasis in the right lung base. The lungs are otherwise willa ar. No significant pericardial or pleural fluid. No concerning bony finding. IMPRESSION: No evidence of pulmonary thromboembolism. No acute lung findings.
[2023-03-23] MEDS ORDERED: SOTALOL HCL 80 MG TAB ONE (14:11)
--- NOTE | 2023-03-23 14:31 | EDPHYS ---
Physician Documentation [facility] Name: El Zaidi Age: 52 yrs Sex: Male : 1970 Arrival Date: 03/23/2023 Time: 12:32 Bed 7 Private MD: ED Physician Emile Junior HPI: 03/23 14:31 This 52 yrs old Male presents to ER via Ambulatory with complaints of PER DOCTOR A FIB. rt 13:24 Patient presents to the ED from physicians office for new onset A-fib with rapid rate. rt 2 weeks ago, the patient had a total hip replacement on the right side, was due to have the austin removed today. Patient has had worsening shortness of breath with dyspnea on exertion. Went to pillowcase cleaner office today was found to have A-fib with rapid rate, sent in for further evaluation. Denies any chest pain, acute complaints. Symptoms are moderate in severity, no other aggravating or alleviating factors.. Historical: - Allergies: 13:01 No Known Allergies; ss - PMHx: 13:01 diabetes mellitus; Hypertension; ss - PSHx: 13:01 Hip replacement; ss - Immunization history:: Client reports receiving the 2nd dose of the Covid vaccine. - Social history:: Smoking status: Patient denies any tobacco usage or history of. - Family history:: not pertinent. ROS: 13:24 Constitutional: Negative for fever, chills, and weight loss, Abdomen/GI: Negative for rt abdominal pain, nausea, vomiting, diarrhea, and constipation, MS/Extremity: Negative for injury and deformity, Skin: Negative for injury, rash, and discoloration, Neuro: Negative for headache, weakness, numbness, tingling, and seizure, Psych: Negative for depression, anxiety, suicide ideation, homicidal ideation, and hallucinations. 13:24 Cardiovascular: Positive for palpitations, Negative for chest pain. 13:24 Respiratory: Positive for dyspnea on exertion, shortness of breath. Exam: 13:24 Constitutional: This is a well developed, well nourished patient who is awake, alert, rt and in no acute distress. Head/Face: Normocephalic, atraumatic. Chest/axilla: Normal chest wall appearance and motion. Nontender with no deformity. No lesions are appreciated. Respiratory: Lungs have equal breath sounds bilaterally, clear to auscultation and percussion. No rales, rhonchi or wheezes noted. No increased work of breathing, no retractions or nasal flaring. Abdomen/GI: Soft, non-tender, with normal bowel sounds. No distension or tympany. No guarding or rebound. No evidence of tenderness throughout. Skin: Warm, dry with normal turgor. Normal color with no rashes, no lesions, and no evidence of cellulitis. Neuro: Awake and alert, GCS 15, oriented to person, place, time, and situation. Cranial nerves II-XII grossly intact. Motor strength 5/5 in all extremities. Sensory grossly intact. Cerebellar exam normal. Normal gait. Psych: Awake, alert, with orientation to person, place and time. Behavior, mood, and affect are within normal limits. 13:24 Cardiovascular: Tachycardic, irregularly irregular rhythm, heart sounds normal. 13:24 ECG was reviewed by the Attending Physician. 13:24 Musculoskeletal/extremity: Hip surgical incision is clean, dry, intact with no surrounding erythema, appears to be well-healed.. Vital Signs: 12:55 BP 129 / 80; Pulse 121; Resp 20; Pulse Ox 100% on R/A; Weight 120.2 kg; Height 6 ft. 1 ss in. ; 13:43 BP 114 / 66; Pulse 130; Resp 18 S; Pulse Ox 100% on R/A; iw 14:15 Pulse 116; iw 16:10 BP 111 / 62; Pulse 107; Resp 18; Pulse Ox 98% on R/A; iw 12:55 Body Mass Index 34.96 (120.20 kg, 185.42 cm) ss Procedures: 13:51 Suture/Staple removal: Removed 27 austin, from right hip, site appears well healed, rt dressed with gauze bandage, Patient tolerated well. MDM: 12:42 Patient medically screened. rt 14:30 Differential diagnosis: A-fib, sinus tachycardia, pulmonary embolism. Data reviewed: rt vital signs, nurses notes, lab test result(s), EKG, radiologic studies. Consideration of Admission/Observation Patient was admitted/placed on observation. Management of patient was discussed with the following: Hospitalist: Agrees to admit. Gas Station Attendant: Discussed with patient's pillowcase cleaner, recommends admission, sotalol twice daily and anticoagulation, currently taking Eliquis twice daily.. Test considered but Not performed: X-ray: Obtaining CT scan, x-ray not necessary. Counseling: I had a detailed discussion with the patient and/or guardian regarding: the historical points, exam findings, and any diagnostic results supporting the discharge/admit diagnosis, lab results, radiology results, the need for further work-up and treatment in the hospital. 03/23 12:54 Order name: Basic Metabolic Panel; Complete Time: 13:46 rt 03/23 12:54 Order name: CBC with Diff; Complete Time: 13:46 rt 03/23 12:54 Order name: LFT's; Complete Time: 13:46 rt 03/23 12:54 Order name: Magnesium; Complete Time: 13:46 rt 03/23 12:54 Order name: PT-INR; Complete Time: 13:46 rt 03/23 12:54 Order name: Troponin HS; Complete Time: 13:46 rt 03/23 12:54 Order name: CT Chest For PE Angio; Complete Time: 14:17 rt 03/23 12:54 Order name: EKG; Complete Time: 12:55 rt 03/23 14:26 Order name: Diet Heart Healthy; Complete Time: 14:27 ss 03/23 12:54 Order name: Cardiac monitoring; Complete Time: 13: rt 03/23 12:54 Order name: EKG - Nurse/Tech; Complete Time: 13: rt 03/23 12:54 Order name: IV Saline Lock; Complete Time: 13: rt 03/23 12:54 Order name: Labs collected and sent; Complete Time: 13: rt 03/23 12:54 Order name: O2 Per Protocol; Complete Time: 13: rt 03/23 12:54 Order name: O2 Sat Monitoring; Complete Time: 13:01 rt EC:24 Rate is 122 beats/min. Rhythm is irregularly irregular, A fib with No ectopy, rate rt Related ST and T wave changes. Left axis deviation noted. QRS interval is normal. QT interval is normal. Administered Medications: 14:08 Drug: Sotalol PO 80 mg Route: PO; kc6 Disposition Summary: 03/23/23 14:30 Hospitalization Ordered Hospitalization Status: Observation rt Provider: Jon Schaefer rt Location: Telemetry/MedSurg (observation) rt Condition: Stable rt Problem: new rt Symptoms: are unchanged rt Bed/Room Type: Standard rt Room Assignment: 208(03/23/23 16:31) bd Diagnosis - Unspecified atrial fibrillation rt Forms: - Medication Reconciliation Form rt - SBAR form rt Signatures: Dispatcher [employer] Valorie Guadalupe Shelby RN RN ss Mary Lou Nevarez RN RN kc6 Emile Junior MD MD rt Corrections: (The following items were deleted from the chart) 16:31 14:30 rt bd 16:40 13:01 PMHx: Atrial fibrillation; ss iw
--- NOTE | 2023-03-23 14:31 | ER ---
Nurse's Notes [facility] Name: El Zaidi Age: 52 yrs Sex: Male : 1970 Arrival Date: 03/23/2023 Time: 12:32 Bed 7 Private MD: Diagnosis: Unspecified atrial fibrillation Presentation: 03/23 12:55 Chief complaint: Patient states: Sent by Dr. Brewer for evaluation and treatment of ss Afib. Pt had hip replacement 15 days ago, and was told to follow up with cardiology. EKG today shows AFIB. Pt c/o shortness of breath upon exertion. Coronavirus screen: Client denies travel out of the [place] in the last 14 days. Ebola Screen: Patient denies exposure to infectious person. Patient denies travel to an Ebola-affected area in the 21 days before illness onset. Initial Sepsis Screen: Does the patient meet any 2 criteria? No. Patient's initial sepsis screen is negative. Does the patient have a suspected source of infection? No. Patient's initial sepsis screen is negative. Risk Assessment: Do you want to hurt yourself or someone else? Patient reports no desire to harm self or others. Onset of symptoms is unknown. 12:55 Method Of Arrival: Ambulatory ss 12:55 Acuity: DEBORA 2 ss Historical: - Allergies: 13:01 No Known Allergies; ss - PMHx: 13:01 diabetes mellitus; Hypertension; ss - PSHx: 13:01 Hip replacement; ss - Immunization history:: Client reports receiving the 2nd dose of the Covid vaccine. - Social history:: Smoking status: Patient denies any tobacco usage or history of. - Family history:: not pertinent. Screenin:13 [facility] ED Fall Risk Assessment (Adult) History of falling in the last 3 months, iw including since admission. Abuse screen: Denies threats or abuse. Denies injuries from another. Nutritional screening: No deficits noted. Tuberculosis screening: No symptoms or risk factors identified. Assessment: 13:14 General: Appears in no apparent distress. Behavior is calm, cooperative. Pain: Denies iw pain. Neuro: Level of Consciousness is awake, alert, obeys commands, Oriented to person, place, time, situation, Moves all extremities. Full function. Cardiovascular: Patient's skin is warm and dry. Rhythm is atrial fibrillation with rapid ventricular response. Respiratory: Respiratory effort is even, unlabored, Respiratory pattern is regular, symmetrical. GI: Abdomen is non-distended. Derm: Skin is intact, is healthy with good turgor. Musculoskeletal: Range of motion: intact in all extremities. 14:16 Reassessment: Patient appears in no apparent distress at this time. Patient and/or iw family updated on plan of care and expected duration. Pain level reassessed. Patient is alert, oriented x 3, equal unlabored respirations, skin warm/dry/pink. 16:55 Reassessment: Patient appears in no apparent distress at this time. Patient and/or iw family updated on plan of care and expected duration. Pain level reassessed. Patient is alert, oriented x 3, equal unlabored respirations, skin warm/dry/pink. Vital Signs: 12:55 BP 129 / 80; Pulse 121; Resp 20; Pulse Ox 100% on R/A; Weight 120.2 kg; Height 6 ft. 1 ss in. ; 13:43 BP 114 / 66; Pulse 130; Resp 18 S; Pulse Ox 100% on R/A; iw 14:15 Pulse 116; iw 16:10 BP 111 / 62; Pulse 107; Resp 18; Pulse Ox 98% on R/A; iw 12:55 Body Mass Index 34.96 (120.20 kg, 185.42 cm) ss ED Course: 12:33 Patient arrived in ED. ts1 12:33 Emile Junior MD is Attending Physician. rt 12:40 Sally Fallon, RN is Primary Nurse. iw 13:01 Triage completed. ss 13:01 Arm band placed on right wrist. ss 13:13 Initial lab(s) drawn, by wi, sent to lab. Inserted saline lock: 20 gauge in right iw antecubital area, using aseptic technique. Blood collected. 13:14 Patient has correct armband on for positive identification. Placed in gown. Bed in low iw position. Call light in reach. Side rails up X2. Client placed on continuous cardiac and pulse oximetry monitoring. NIBP monitoring applied. 13:58 CT Chest For PE Angio In Process Unspecified. EDMS 14:29 Jon Schaefer MD is Hospitalizing Provider. rt 16:55 No provider procedures requiring assistance completed. Patient admitted, IV remains in iw place. Administered Medications: 14:08 Drug: Sotalol PO 80 mg Route: PO; kc6 Medication: 13:13 VIS not applicable for this client. iw Outcome: 14:30 Decision to Hospitalize by Provider. rt 16:55 Admitted to Tele accompanied by tech, via wheelchair, room 208, Report called to shreya Aguilera RN 16:55 Condition: good 16:55 Discharge instructions given to patient, family, Instructed on the need for admit. 16:56 Patient left the ED. iw Signatures: Dispatcher [employer] EDSally Salamanca RN RN iw Smirch, Shelby, RN RN ss Mary Lou Nevarez RN RN kc6 Emile Junior MD MD rt Hyacinth Valdes PAS PAS ts1 Corrections: (The following items were deleted from the chart) 16:40 13:01 PMHx: Atrial fibrillation; [facility]
[2023-03-23] MEDS ORDERED: ACETAMINOPHEN 325 MG TABLET PO PRN (15:54)
[2023-03-23] MEDS ORDERED: HYDROCODONE/APAP 10/325 TAB PO PRN (15:54)
[2023-03-23] MEDS ORDERED: ONDANSETRON 4 MG/2 ML VIAL IV PRN (16:04)
--- NOTE | 2023-03-23 16:10 | P.HP ---
Certification for Inpatient Patient admitted to: Observation With expected LOS: <2 Midnights Patient will require the following post-hospital care: None Practitioner: I am a practitioner with admitting privileges, knowledge of patient current condition, hospital course, and medical plan of care. Services: Services provided to patient in accordance with Admission requirements found in Title 42 Section 412.3 of the Code of Federal Regulations Patient History Date of Service: 03/23/23 Reason for admission: Abnormal EKG results. History of Present Illness: Patient is a 52-year-old male with a past medical history significant for hypertension, hyperlipidemia, DM 2, alcohol abuse who presents with complaint of abnormal EKG findings. Patient recently had a right hip replacement and was doing his therapy today. Physical therapist checked his pulse rate and pulse was noted to be in the 150s. Patient followed up with his encoding clerk in his office and patient was noted to have atrial fibrillation with RVR on EKG at the encoding clerk office. A-fib with RVR. Patient reported associated signs and symptoms of shortness of breath with exertion. Patient denies any other signs and symptoms. Symptoms are aggravated or relieved by nothing. Patient was referred to come to the ER for further management. Allergies No Known Allergies Allergy (Verified 03/08/23 06:48) Home Medications: Atenolol [Tenormin] 100 mg PO BEDTIME 03/08/23 Atorvastatin Calcium [Lipitor] 40 mg PO BEDTIME 03/08/23 Dapagliflozin Propanediol [Farxiga] 10 mg PO DAILY 03/08/23 Gabapentin 300 mg PO TID PRN 03/08/23 Losartan/Hydrochlorothiazide [Losartan-Hctz 100-25 mg Tab] 1 each PO DAILY 03/08 Metformin ER [Glucophage ER] 500 mg PO BEDTIME 03/08/23 Semaglutide [Ozempic] 2 mg SQ EVERY 7TH DAY 03/08/23 Tramadol HCl [Ultram] 50 mg PO Q6H PRN 03/08/23 methocarbamoL [Methocarbamol] 500 mg PO TID PRN 03/08/23 Apixaban [Eliquis] 5 mg PO BID 03/23/23 - Past Medical/Surgical History Diabetic: Yes -: diabetes -: hypertension -: hyperlipidemia -: TOTAL RIGHT HIP SURGERY - Family History Father -: Liver disease, Other (see notes) Notes: alcholism. passed age 40 Mother -: Heart disease, Lung disease, Other (see notes) Notes: pacemaker, passed mid 60's - Social History Smoking Status: Never smoker Alcohol use: Yes CD- Drugs: No Caffeine use: Yes Place of Residence: Home Review of Systems General: Unremarkable Eyes: Unremarkable ENT: Unremarkable Respiratory: SOB with Excertion Cardiovascular: Unremarkable Gastrointestinal: Unremarkable Genitourinary: Unremarkable Musculoskeletal: Other (Right hip pain.), Unremarkable Integumentary: Unremarkable Neurological: Unremarkable Lymphatics: Unremarkable Physical Examination - Physical Exam General: Alert, In no apparent distress, Oriented x3 HEENT: Atraumatic, PERRLA, Mucous membr. moist/pink, EOMI, Sclerae nonicteric Neck: Supple, 2+ carotid pulse no bruit, No LAD, Without JVD or thyroid abnormality Respiratory: Clear to auscultation bilaterally, Normal air movement Cardiovascular: No edema, Regular rate/rhythm, Normal S1 S2 Capillary refill: <2 Seconds Gastrointestinal: Normal bowel sounds, No tenderness Musculoskeletal: No clubbing, No swelling, No contractures, No tenderness Integumentary: No rashes, No significant lesion Neurological: Normal speech, Normal tone, Normal affect Lymphatics: No axilla or inguinal lymphadenopathy - Studies Laboratory Data (last 24 hrs) 03/23/23 13:09: PT 15.6 H, INR 1.42 03/23/23 13:09: WBC 9.30, Hgb 13.2 L, Hct 39.4 L, Plt Count 374 03/23/23 13:09: Sodium 138, Potassium 3.9, BUN 22 H, Creatinine 1.01, Glucose 170 H, Magnesium 1.9, Total Bilirubin 0.6, AST 45 H, ALT 57, Alkaline Phosphatase 129 H Assessment and Plan - Plan -- A-fib with RVR. Office Helper consulted. Recommended placing patient on sotalol. Continue Eliquis. Telemetry to monitor for any malignant arrhythmia. Further management Per encoding clerk. --DM2. BS monitoring with sliding scale insulin. --Hypertension. Stable. Continue home medication. --Hyperlipidemia. Continue statin. --Alcohol abuse. Patient has a history of alcohol abuse. Alcohol withdrawal assessment protocol. --Right hip OA. Status post right hip replacement. Patient on physical therapy at home. Physical therapy consulted. Will await further recommendations. -- Obesity. Likely secondary to excess calories intake. Patient counseled on weight reduction, diet and exercise therapy. --Elevated LFTs. Mild elevation in LFTs noted. Likely secondary to alcohol abuse. We will continue to monitor liver functions. Continue supportive care. --DVT prophylaxis with Eliquis. Discharge Plan: Home Plan to discharge in: 48 Hours - Advance Directives Does patient have a Living Will: No Does patient have a Durable POA for Healthcare: No - Code Status/Comfort Care Code Status Assessed: Yes Physician Review: Patient Assessed, Agree with Above Assessment and Plan Critical Care: No
[2023-03-23 17:22] VITALS: BMI 34.9
[2023-03-23] MEDS: SOTALOL HCL 80 MG TAB PO SCH (17:30)
[2023-03-23 18:12] LABS: Thyroid Stimulating Hormone 1.31 uIU/mL (0.358-3.740)
[2023-03-23] MEDS ORDERED: D50W 25 GM/50 ML SYRINGE IV PRN (19:16)
[2023-03-23] MEDS ORDERED: GLUCAGON 1 MG/VIAL IM PRN (19:16)
[2023-03-23] MEDS ORDERED: methocarbamoL 500 MG TAB PO PRN (19:17)
[2023-03-23] MEDS: INSULIN -REGULAR HUMAN 50 UNIT/0.5 ML ML SQ SCH (21:00)
[2023-03-23] MEDS ORDERED: atenoloL 50 MG TAB PO SCH (21:00)
[2023-03-23] MEDS: ATORVASTATIN 40 MG TAB PO SCH (21:14)
[2023-03-23] MEDS: GABAPENTIN 300 MG CAP PO PRN (21:14)
[2023-03-23] MEDS: APIXABAN 5 MG TABLET PO SCH (21:14)
[2023-03-23] MEDS: TRAMADOL HCL 50 MG TAB PO PRN (22:39)
[2023-03-24 03:56] LABS: Absolute Lymphocytes (CBC) 4.1 K/uL (0.7-4.9); Hematocrit 36.4 % (39.6-49.0); Lymphocytes % 33.6 % (15.3-44.8); MCV 93.8 fL (80-100); MPV 7.2 fL (7.6-11.3); RBC Red Blood Cell Count 3.88 M/uL (4.33-5.43)
[2023-03-24 04:08] LABS: Potassium 3.5 mEq/L (3.5-5.1)
[2023-03-24] MEDS ORDERED: POTASSIUM CL SA 10 MEQ TAB PO ONE ×2 (04:46→07:43)
[2023-03-24] MEDS: GABAPENTIN 300 MG CAP PO PRN ×2 (05:29→20:49)
[2023-03-24] MEDS: SOTALOL HCL 80 MG TAB PO SCH ×2 (05:29→17:08)
[2023-03-24] MEDS: TRAMADOL HCL 50 MG TAB PO PRN ×2 (05:34→20:49)
--- NOTE | 2023-03-24 06:55 | P.PN ---
Date of Service: 03/24/23 Subjective: no SOB, no chest pain this morning hip pain is tolerable with pain medication no acute events overnight ROS: 10 point ROS as noted above, otherwise negative Physical Exam: GEN: Alert, oriented, NAD HEENT: Normal conjunctiva, sclera anicteric CV: Irregularly Irregular rate and rhythm, no edema Pulm: Nonlabored respirations on room air ABD: Soft, nontender, nondistended MSK: No joint tenderness Neuro: Normal speech, normal affect vitals reviewed Problem List: A-fib with RVR, new Right hip OA s/p recent arthroplasty Elevated LFTs Alcohol abuse DM2 Hypertension Hyperlipidemia Obesity A-fib with RVR Monitor on telemetry Apparel Sales Leader consulted continue sotalol pts HR remains >110-120s, up to 150s this morning with PT; reportedly asymptomatic at that time however later in early afternoon, noted some dyspnea on exertion when ambulating to bathroom in room; HR: 130s discussed with Dr. Brewer, started metoprolol 25mg in addition to sotalol Continue Eliquis echo pending Right hip OA s/p right hip replacement 03/08 - Patient on physical therapy at home PT consulted Elevated LFTs Mild elevation in LFTs noted. Likely secondary to alcohol abuse. continue to monitor liver function Alcohol abuse - Patient has a history of alcohol abuse. Alcohol withdrawal assessment protocol. no drink in ~2 weeks (before surgery) DM2 - sliding scale insulin Hypertension - Stable. Continue home medication Hyperlipidemia - Continue statin Obesity - Likely secondary to excess calories intake. Patient counseled on weight reduction, diet and exercise therapy. VTE: Eliquis Code: Full Dispo: Home 1-2 days
[2023-03-24] MEDS: INSULIN -REGULAR HUMAN 50 UNIT/0.5 ML ML SQ SCH ×4 (07:30→21:16)
[2023-03-24] MEDS: APIXABAN 5 MG TABLET PO SCH ×2 (08:16→20:50)
[2023-03-24] MEDS: ASPIRIN 81 MG CHEWABLE TABLET PO SCH (08:16)
[2023-03-24] MEDS ORDERED: LOSARTAN/HCTZ 50-12.5 PO SCH (09:00)
[2023-03-24 11:43] LABS: Specific Gravity > 1.030 (1.005-1.030); Urine Bilirubin NEGATIVE (Negative); Urine Blood Negative (Negative); Urine Clarity Clear (Clear); Urine Color Light-Yellow (Yellow); Urine Glucose 4+ (Over) (Negative); Urine Protein NEGATIVE (Negative); Urine Urobilinogen Normal (Normal)
--- NOTE | 2023-03-24 13:03 | CON ---
Date of Consultation: 03/24/2023 Reason For Consultation: Atrial fibrillation with rapid ventricular response. History Of Present Illness: Mr. Zaidi is 52. Developed atrial fibrillation after hip surgery 2 we eks ago. He was placed on beta-blockers and Eliquis. He also takes losartan, hydrochlorothiazide, a nd Farxiga, as well as, metformin and Ozempic at home. He does have a significant history of alcohol intake. Has a history of dyslipidemia, hypertension, diabetes. Had atrial fibrillation yesterday t hat was recurrent. Dr. Brewer sent him to the hospital for further evaluation and treatment. He was placed on sotalol 80 mg p.o. b.i.d. Eliquis was continued. The rest of the medicine will continue. Patient really has no symptoms except for palpitation. Denied any syncope. Echocardiogram is pend ing today. Allergies: NONE. Medications: Listed earlier. Review of Systems: Negative. Social History: Negative. Family History: Noncontributory. Physical Examination: General: He is still in atrial fibrillation after 2 doses of sotalol. Vital Signs: Heart rate is 80, afebrile. HEENT: Negative. Neck: Supple with no bruit. Chest: Clear. Cardiac: Revealed atrial fibrillation. Abdomen: Benign. Extremities: No clubbing, cyanosis, or edema. Diagnostic Data: All within normal limits except for the EKG showing AFib. Impression And Plan: Recurrent atrial fibrillation, on sotalol. Patient can go home after his third dose. We will continue his Eliquis. If he stays in atrial fibrillation for about a week or 2, we m ay have to do a cardioversion. I will leave that up to Dr. Brewer. His cholesterol, diabetes, and h ypertension are stable. We will see what the echo shows. He can be discharged today. NB/MODL Voice ID: [id number] Report ID: [id number]
--- NOTE | 2023-03-24 14:22 | P.DS ---
Admission Date: 03/23/23 Discharge Date: 03/25/23 Disposition: ROUTINE DISCHARGE Reason for Admission: Abnormal EKG results. Consultations: Cardiology - Dr. Eng/Dr. Brewer Brief History of Present Illness: 52yo M, PMH: hypertension, hyperlipidemia, DM 2, alcohol abuse Patient presents with complaint of abnormal EKG findings. Patient recently had a right hip replacement and was doing his therapy today. Physical therapist c hecked his pulse rate and pulse was noted to be in the 150s. 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 A-fib with RVR. Patient reported associated signs and symptoms of shortness of breath with exertion. Patient denies any other signs and symptoms. Symptoms are aggravated or relieved by nothing. Patient was referred to come to the ER for further management. Hospital Course: Problem List: A-fib with RVR Right hip OA Elevated LFTs Alcohol abuse DM2 Hypertension Hyperlipidemia Obesity Patient presents with atrial fibrillation with RVR associated with palpitations and dyspnea on exertion. Troponins were negative x3, no acute abnormalities noted on CT chest, and EKG at Dr. Lane office noted A-fib with RVR. Echocardiogram was obtained and unremarkable. He was given 80mg sotalol and continued with heart rates 100-120s. Cardiology was consulted and recommended increasing sotalol to 120mg, no further inpatient testing, and follow up in the office. He had improvement of rate control and was deemed stable for discharge home. Consideration for electrical cardioversion if remains in afib on follow up with Cardiology in ~1-2 weeks. Continue physical therapy for right hip replacement. Follow-up PCP within 1 week Cardiology in ~1-2 weeks Discharged to continue Eliquis 5 mg twice a day, new prescription given. New prescription for sotalol 120 mg twice a day. Discontinue atenolol. Monitor blood pressure at home, restart losartan/HCTZ once blood pressure is consistently greater than 140/80 Otherwise he is to continue other home meds as previously prescribed. Physical Exam: GEN: Alert, oriented, NAD HEENT: Normal conjunctiva, sclera anicteric CV: regular rate and rhythm, no edema Pulm: Nonlabored respirations on room air ABD: Soft, nontender, nondistended Neuro: Normal speech, normal affect Vital Signs/Physical Exam: Temp Pulse Resp BP Pulse Ox 97.1 F 91 H 14 139/71 98 03/24/23 08:00 03/24/23 08:00 03/24/23 08:00 03/24/23 08:00 03/24/23 08:00 Laboratory Data at Discharge: WBC 12.20 thou/uL (4.3-10.9) H 03/24/23 02:43 Hgb 12.0 g/dL (13.6-17.9) L D 03/24/23 02:43 Hct 36.4 % (39.6-49.0) L 03/24/23 02:43 Plt Count 323 thou/uL (152-406) 03/24/23 02:43 PT 15.6 SECONDS (9.5-12.5) H 03/23/23 13:09 INR 1.42 03/23/23 13:09 Sodium 137 mEq/L (136-145) 03/24/23 02:43 Potassium 3.5 mEq/L (3.5-5.1) 03/24/23 02:43 BUN 23 mg/dL (7-18) H 03/24/23 02:43 Creatinine 0.87 mg/dL (0.70-1.30) 03/24/23 02:43 Glucose 146 mg/dL (74-106) H 03/24/23 02:43 Phosphorus 4.0 mg/dL (2.5-4.9) 03/23/23 17:30 Magnesium 2.0 mg/dL (1.6-2.4) 03/23/23 17:30 Total Bilirubin 0.6 mg/dL (0.2-1.0) 03/23/23 13:09 AST 45 U/L (15-37) H 03/23/23 13:09 ALT 57 U/L (16-61) 03/23/23 13:09 Alkaline Phosphatase 129 U/L (45-117) H 03/23/23 13:09 Home Medications: Atorvastatin Calcium [Lipitor] 40 mg PO BEDTIME 03/08/23 Dapagliflozin Propanediol [Farxiga] 10 mg PO DAILY 03/08/23 Gabapentin 300 mg PO TID PRN 03/08/23 Losartan/Hydrochlorothiazide [Losartan-Hctz 100-25 mg Tab] 1 each PO DAILY 03/08/23 Metformin ER [Glucophage ER*] 500 mg PO BEDTIME 03/08/23 Semaglutide [Ozempic] 2 mg SQ EVERY 7TH DAY 03/08/23 Tramadol HCl [Ultram] 50 mg PO Q6H PRN 03/08/23 methocarbamoL [Methocarbamol] 500 mg PO TID PRN 03/08/23 Apixaban [Eliquis] 5 mg PO BID 30 Days #60 tab 03/25/23 Sotalol HCl [Sotalol AF] 120 mg PO BID 30 Days #60 tab 03/25/23 New Medications: Apixaban [Eliquis] 5 mg PO BID 30 Days #60 tab Sotalol HCl [Sotalol AF] 120 mg PO BID 30 Days #60 tab Physician Discharge Instructions: Patient presents with atrial fibrillation with RVR associated with palpitations and dyspnea on exertion. Troponins were negative x3, no acute abnormalities noted on CT chest, and EKG at Dr. Lane office noted A-fib with RVR. Echocardiogram was obtained and unremarkable. He was given 80mg sotalol and continued with heart rates 100-120s. Cardiology was consulted and recommended increasing sotalol to 120mg, no further inpatient testing, and follow up in the office. He had improvement of rate control and was deemed stable for discharge home. Consideration for electrical cardioversion if remains in afib on follow up with Cardiology in ~1-2 weeks. Continue physical therapy for right hip replacement. Follow-up PCP within 1 week Cardiology in ~1-2 weeks Discharged to continue Eliquis 5 mg twice a day, new prescription given. New prescription for sotalol 120 mg twice a day. Discontinue atenolol. Monitor blood pressure at home, restart losartan/HCTZ once blood pressure is consistently greater than 140/80 Otherwise he is to continue other home meds as previously prescribed. Followup: Mehul Millan MD [Primary Care Provider] - 1 Week (ecall to schedule an appointment in 1 week) Parveen Brewer MD [ACTIVE - CAN ADMIT] - 1-2 Weeks (call to schedule an appointment) Time spent managing pt's care (in minutes): 45
--- NOTE | 2023-03-24 14:28 | EKG ---
Test Date: 2023-03-23 Test Time: 12:57:21 Relief Manager: ANDREAS MEASUREMENT RESULTS: Intervals: Rate: 122 HI: QRSD: 92 QT: 290 QTc: 413 [place]: P: HI: QRS: -36 T: 95 INTERPRETIVE STATEMENTS: Atrial fibrillation Left axis deviation Nonspecific ST and T wave abnormality, probably digitalis effect Abnormal ECG Compared to ECG 01/21/2023 10:45:15 Left-axis deviation now present ST (T wave) deviation now present Atrial flutter no longer present Electronically Signed On 03-24-23 14:26:16 CDT by Parveen Brewer
[2023-03-24] MEDS ORDERED: METOPROLOL TAR 25 MG TAB PO ONE (15:20)
[2023-03-24] MEDS: ATORVASTATIN 40 MG TAB PO SCH (20:50)
[2023-03-25 03:49] LABS: Potassium 3.7 mEq/L (3.5-5.1)
[2023-03-25] MEDS: SOTALOL HCL 80 MG TAB PO SCH (05:59)
[2023-03-25] MEDS ORDERED: METOPROLOL TAR 25 MG TAB PO SCH (06:00)
[2023-03-25] MEDS ORDERED: SOTALOL HCL 80 MG TAB PO ONE (06:45)
--- NOTE | 2023-03-25 06:49 | ECHO ---
HEIGHT: 6 ft 1 in WEIGHT: 265 lb 0 oz DATE OF STUDY: 03/24/[address]: Elena Lopez 2-DIMENSIONAL: YES M.MODE: YES DOPPLER: YES COLOR FLOW: YES TDS: NO PORTABLE: YES DEFINITY: NO BUBBLE STUDY: NO DIAGNOSIS: ATRIAL FIBRILLATION WITH RAPID VENTRICULAR RESPONSE CARDIAC HISTORY: CATHERIZATION: NO SURGERY: NO PROSTHETIC VALVE: NO PACEMAKER: NO MEASUREMENTS (cm) DIASTOLIC (NORMALS) SYSTOLIC (NORMALS) IVSd 1.3 (0.6-1.2) LA Diam 2.8 (1.9-4.0) LVEF 69% LVIDd 4.0 (3.5-5.7) LVIDs 2.4 (2.0-3.5) %FS 38% LVPWd 1.3 (0.6-1.2) Ao Diam 2.3 (2.0-3.7) 2 DIMENSIONAL ASSESSMENT: RIGHT ATRIUM: NORMAL LEFT ATRIUM: NORMAL RIGHT VENTRICLE: NORMAL LEFT VENTRICLE: NORMAL TRICUSPID VALVE: NORMAL MITRAL VALVE: NORMAL PULMONIC VALVE: NORMAL AORTIC VALVE: NORMAL PERICARDIAL EFFUSION: NONE AORTIC ROOT: NORMAL LEFT VENTRICULAR WALL MOTION: NORMAL DOPPLER/COLOR FLOW: NORMAL COMMENTS: 1. NORMAL LEFT VENTRICULAR EJECTION FRACTION 60-65%. 2. NORMAL WALL MOTION. 3. ATRIAL FIBRILLATION. TECHNOLOGIST: Benjamin MENDIOLA
[2023-03-25] MEDS: ASPIRIN 81 MG CHEWABLE TABLET PO SCH (08:14)
[2023-03-25] MEDS: TRAMADOL HCL 50 MG TAB PO PRN (08:14)
[2023-03-25] MEDS: GABAPENTIN 300 MG CAP PO PRN (08:14)
[2023-03-25] MEDS: APIXABAN 5 MG TABLET PO SCH (08:14)
[2023-03-25] MEDS: INSULIN -REGULAR HUMAN 50 UNIT/0.5 ML ML SQ SCH (08:17)
[2023-03-25 08:25] VITALS: BP 152/92; TEMP 97
[2023-03-25 08:53] VITALS: O2SAT 99
[2023-03-25] MEDS ORDERED: POTASSIUM CL SA 10 MEQ TAB PO ONE (09:00)
--- NOTE | 2023-03-25 11:38 | PN ---
Mr. Zaidi is being seen for atrial fibrillation. He had failed beta-sofi, was admitted, was star alysia on sotalol. He received 3 dosages and continued to have a heart rate of 120. However, overnight he converted to sinus rhythm. Echocardiogram was within normal limit. Case was discussed with Dr. Schaefer. Mr. Zaidi can go home but I think he should be on a higher dose of sotalol at 120 b.i.d., h ome today. We will see him in the office in the next week or 2. SHERRIE/REBECCA Voice ID: [id number] Report ID: [id number]
[2023-03-25] MEDS ORDERED: SOTALOL HCL 80 MG TAB PO SCH (18:00)
== END 2023-03-25 09:50 | disposition home health service (06) | DRG 310 ==
LOC: ER 12:32 → ERHOLD 15:53 → 2ND 16:45 → OBSVTOIN 03-24 18:21
PROVIDERS: ADMIT Hospitalist; ATTEND Hospitalist
DX: I48.91 Unspecified atrial fibrillation (principal); I10 Essential (primary) hypertension; E11.9 Type 2 diabetes mellitus without complications; M16.11 Unilateral primary osteoarthritis, right hip; F10.10 Alcohol abuse, uncomplicated; E78.5 Hyperlipidemia, unspecified; R79.89 Other specified abnormal findings of blood chemistry; E66.9 Obesity, unspecified; E66.09 Other obesity due to excess calories; Z68.35 Body mass index [BMI] 35.0-35.9, adult; Z71.3 Dietary counseling and surveillance; Z79.01 Long term (current) use of anticoagulants; Z79.84 Long term (current) use of oral hypoglycemic drugs; Z79.899 Other long term (current) drug therapy; Z96.641 Presence of right artificial hip joint; Z82.49 Family history of ischemic heart disease and other diseases of the circulatory system
CPT/HCPCS: 36415; 71275; 80048; 80076; 81003; 82947; 83735; 84100; 84439; 84443; 84484; 85025; 85610; 93005; 93306; 97116; 97161; 99285; G0378; J1815; Q9967

== ENCOUNTER 2023-06-23 13:52 | Observation (INO) | payer BC ==
--- OUTSIDE RECORDS SUMMARY | 2023-06-23 13:55 | XMS REPORT | Continuity of Care Document ---
:1970 Author Organization [facility] t Address [address] [place] [address] [place] [address] Care Team Providers Name Role Phone Unknown, Physician Primary Care Physician Unavailable Mehul Millan Attending Clinician Unavailable Ilan Freed MD Attending Clinician Payers Payer Name Policy Type Policy Number Effective Date Expiration Date S giuliana BCBSTX PPO AND [id number] 2022 OUT OF STATE 70 00:00:00 Blue Cross 6 [id number] [facility] Blue Shield 70 - [facility] Center Problems Condition Condition Condition [...] 08:20:00 l Active 00:00: Silver 04/01/2012 00 [facility] [id number] Pain, [place] n [id number] joint, Spirit hip, right - [facility] [id number] [place] [id number] secondary Spirit osteoarthr - [facility] Allergies, Adverse Reactions, Alerts This patient has no known allergies or adverse reactions. Social History Social Habit Start Date Stop Date Quantity Comments Source History of Tobacco [facility] - Use [facility] Exposure to 2022-12-11 2022-12-21 Not sure [facility] SARS-CoV-2 (event) 00:00:00 20:49:00 Sex Ass[birth year] At [birth year] [facility] 00:00:00 00:00:00 Smoking Status Start Date Stop Date Source Tobacco smoking consumption [place] [facility] unknown Never Smoker [facility] Medications Ordered Filled Start Stop Current Ordering [...] 5-19 on Allowed l 16:36: Silver Weber lisinopril Yes Substituti M emoria 5-19 on [...] Comments Source height 2022-12-01 09:15:00 74 [in_i] [facility] - [facility] weight 2022-12-01 09:15:00 290 [facility]_av[facility] temperature 2022-12-01 09:15:00 98.0 [degF] [facility] bmi 2022-12-01 09:15:00 37.23 kg/m2 [facility] - [facility] blood pressure 2022-12-01 09:15:00 138 mm[Hg] [facility] - systolic [facility] blood pressure 2022-12-01 09:15:00 89 mm[Hg] [facility] - diastolic [facility] height 2022-11-24 15:00:00 74 [in_i] [facility] - [facility] weight 2022-11-24 15:00:00 290 [lb_av] [facility] temperature 2022-11-24 15:00:00 98.2 [degF] [facility] bmi 2022-11-24 15:00:00 37.23 kg/m2 [facility] blood pressure 2022-11-24 15:00:00 140 mm[Hg] [facility] - systolic [facility] blood pressure 2022-11-24 15:00:00 82 mm[Hg] Common [facility] Height 2012-04-01 14:24:00 190.50 cm [facility] Weight 2012-04-01 14:24:00 [facility] Procedures This patient has no known procedures. Encounters Start End Encounter Admission Attending Care Care Encounter Source Date/Time Date/Time Type Type Clinicians Facility Department ID 2023-03-30 Outpatient [place], STLMLC STLMLC [id number] Common 13:50:04 Mehul [id number] [facility] 2022-12-23 Outpatient [facility] [id number] [place] 14:38:21 [id number] [facility] 2022-12-22 Outpatient [facility] [id number] [place] 06:13:25 [id number] [facility] 2022-12-21 Outpatient [facility] [id number] [place] 20:31:38 [id number] [facility] 2022-11-30 Outpatient [place], STLMLC STLC [id number] Common 14:36:04 Mehul [id number] [facility] 2022-11-26 Outpatient [facility] [id number] [place] 08:30:00 [id number] [facility] 2022-11-24 Outpatient [place], STTEJALLC STLMLC [id number] Common 14:55:04 Mehul [id number] [facility] 2022-12-22 2022-12-[address] [facility] [id number] [place] 09:30:00 09:53:07 Visit Ilan BOLAND [id number] Health [facility] [id number] MEDICAL [id number] [address] 2022-12-22 2022-12-22 Outpatient [facility] [id number] [place] 00:00:00 00:00:00 Health 2022-12-22 2022-12-22 (TEL) STLMLC STLMLC [id number] Co m[place] 00:00:00 00:00:00 [facility] 2022-12-01 2022-12-01 OFFICE STLMLC STLMLC [id number] Co m[place] 00:00:00 00:00:00 VISIT EST Spir it PT LEVEL 3 [facility] 2022-11-24 2022-11-[address] [facility] [id number] Co mmon 00:00:00 00:00:00 VISIT NEW [facility] it PT LEVEL 3 - [facility] 2012-04-01 2012-04-01 Emergency [place] [address] [id number] [facility] 09:15:00 15:00:00 [facility] 00 l Silver 2012-04-01 2012-04-01 Emergency [place]avo [place] [address] [id number] [facility] 09:15:00 15:00:00 [facility] 00 l Silver Results This patient has no known results.
[2023-06-23 14:19] LABS: Absolute Lymphocytes (CBC) 2.7 K/uL (0.7-4.9); Hematocrit 42.6 % (39.6-49.0); Lymphocytes % 24.4 % (15.3-44.8); MCV 91.3 fL (80-100); MPV 7.5 fL (7.6-11.3); Platelets 146 thou/uL (152-406); RBC Red Blood Cell Count 4.67 M/uL (4.33-5.43)
[2023-06-23 14:22] LABS: Protime INR 0.98
[2023-06-23] MEDS ORDERED: dilTIAZem HCL 25 MG/5 ML VIAL IV ONE (14:28)
[2023-06-23 14:46] LABS: Albumin 4.1 g/dL (3.4-5.0); Bilirubin Direct 0.1 mg/dL (0-0.2); Bilirubin Indirect, Calculated 0.3 mg/dL (0.2-0.8); Bilirubin Total 0.4 mg/dL (0.2-1.0); Magnesium 2.1 mg/dL (1.6-2.4); Potassium 4.2 mEq/L (3.5-5.1); Protein, Total 8.1 g/dL (6.4-8.2); Thyroid Stimulating Hormone 1.26 uIU/mL (0.358-3.740); Troponin High Sensitivity 12.2 pg/mL (<58.9)
--- NOTE | 2023-06-23 14:46 | RAD REPORT ---
EXAM DESCRIPTION: RADChest Single View06/23/2023 2:32 pm CLINICAL HISTORY: SOB COMPARISON: Chest Pa And Lat (2 Views) dated 03/03/2023 TECHNIQUE: Portable AP view of the chest. FINDINGS: The lungs are clear. No pneumothorax or effusion. The cardiomediastinal contours are unrem arkable. IMPRESSION: No acute cardiopulmonary process.
[2023-06-23] MEDS ORDERED: DILTIAZEM INJ 125 MG/25 ML 125 MG in NA CHLORIDE 0.9% 100 ML IV SCH (15:00)
--- NOTE | 2023-06-23 15:21 | ER ---
Nurse's Notes [facility] Name: El Zaidi Age: 52 yrs Sex: Male : 1970 Arrival Date: 06/23/2023 Time: 13:52 Bed 4 Private MD: Diagnosis: Paroxysmal atrial fibrillation-RVR Presentation: 06/23 14:06 Chief complaint: Patient states: "At 10am today, I started feeling funny and getting mb9 SOB. I called Dr. Brewer and they told me to come here because of my history of going into A Fib". Coronavirus screen: Vaccine status: Patient reports receiving the 2nd dose of the covid vaccine. Ebola Screen: No symptoms or risks identified at this time. Initial Sepsis Screen: Does the patient meet any 2 criteria? No. Patient's initial sepsis screen is negative. Does the patient have a suspected source of infection? No. Patient's initial sepsis screen is negative. Risk Assessment: Do you want to hurt yourself or someone else? Patient reports no desire to harm self or others. Onset of symptoms was June 23, 2023. 14:06 Acuity: DEBORA 2 mb9 14:06 Method Of Arrival: Wheelchair mb9 Triage Assessment: 14:08 General: Appears uncomfortable, Behavior is cooperative. Pain: Denies pain. Neuro: mb9 Hernandez Agitation-Sedation Scale (RASS): 0 - Alert and Calm Level of Consciousness is awake, alert, obeys commands, Oriented to person, place, time, situation, Appropriate for age. Cardiovascular: Reports chest pain, palpitations, shortness of breath. Respiratory: Airway is patent Respiratory effort is even, unlabored, Respiratory pattern is tachypnea. Derm: Skin is pink, warm \\T\\ dry. Historical: - Allergies: 14:07 No Known Allergies; mb9 - Home Meds: 14:30 atorvastatin 40 mg Oral tab 1 tab once daily [Active]; losartan-hydrochlorothiazide ko1 100-25 mg Oral tab 1 tab once daily [Active]; Ozempic 2 mg/dose (8 mg/3 mL) subcutaneous Pen Injector every week [Active]; Farxiga 10 mg oral tablet daily [Active]; Sotalol Oral 2 times per day [Active]; - PMHx: 14:07 diabetes mellitus; Hypertension; Atrial fibrillation; mb9 - PSHx: 14:07 hip replacement; mb9 - Immunization history:: Adult Immunizations up to date. - Social history:: Smoking status: Patient denies any tobacco usage or history of. Screenin:10 Abuse screen: Denies threats or abuse. Denies injuries from another. Nutritional ss screening: No deficits noted. Tuberculosis screening: Never had TB. 15:30 [facility] ED Fall Risk Assessment (Adult) History of falling in the last 3 months, ko1 including since admission No falls in past 3 months (0 pts) Confusion or Disorientation No (0 pts) Intoxicated or Sedated No (0 pts) Impaired Gait No (0 pts) Mobility Assist Device Used No (0 pt) Altered Elimination No (0 pt) Score/Fall Risk Level 0 - 2 = Low Risk Oriented to surroundings, Maintained a safe environment, Educated pt \\T\\ family on fall prevention, incl call for assistance when getting out of bed, Assessed \\T\\ reinforced patient's understanding of fall precautions, Provided non-skid footwear, Hourly rounding (assess needs \\T\\ fall precautionary measures) done, Used ambulatory aids as needed (educated on \\T\\ assisted with), Used gait belt as appropriate. Assessment: 14:10 Cardiovascular: Rhythm is atrial fibrillation with rapid ventricular response. ss Vital Signs: 14:06 Pulse 145; Resp 23; Temp 98.2(O); Pulse Ox 98% on R/A; Weight 95.25 kg; Height 5 ft. 11 mb9 in. ; 14:10 Pulse 127; ss 14:30 BP 143 / 97; Pulse 87; Resp 16; Pulse Ox 96% ; ko1 14:35 BP 150 / 103; Pulse 80; Resp 16; Pulse Ox 96% ; ko1 15:00 BP 149 / 85; Pulse 97; Resp 18; Pulse Ox 96% ; ko1 15:30 BP 136 / 84; Pulse 89; Resp 18; Pulse Ox 97% ; ko1 15:40 BP 131 / 88; Pulse 89; Resp 16; Pulse Ox 95% on R/A; ko1 14:06 Body Mass Index 29.29 (95.25 kg, 180.34 cm) mb9 Vitals: 14:30 Cardiac Rhythm Assessment Atrial fibrillation. ko1 14:35 Cardiac Rhythm Assessment Atrial fibrillation. ko1 15:30 Cardiac Rhythm Assessment Atrial fibrillation. ko1 15:40 Cardiac Rhythm Assessment Atrial fibrillation. ko1 [employer] Coma Score: 14:14 Eye Response: spontaneous(4). Motor Response: obeys commands(6). Verbal Response: snw oriented(5). Total: 15. ED Course: 13:54 Patient arrived in ED. im 14:00 EKG done, by ED staff, reviewed by Deanne OWENS. Inserted saline lock: 18 gauge mb9 in right antecubital area, using aseptic technique. 14:02 Kalie Russell MD is Attending Physician. sp3 14:03 Deanne Yu FNP-C is PHCP. snw 14:06 Arm band placed on. mb9 14:07 Triage completed. mb9 14:12 Samantha West, RN is Primary Nurse. ko1 14:15 Basic Metabolic Panel Sent. ko1 14:15 CBC with Diff Sent. ko1 14:15 LFT's Sent. ko1 14:15 Magnesium Sent. ko1 14:15 NT PRO-BNP Sent. ko1 14:15 PT-INR Sent. ko1 14:15 Troponin HS Sent. ko1 14:34 XRAY Chest (1 view) In Process Unspecified. EDMS 15:19 Nicanor Nelson is Hospitalizing Provider. snw 15:30 Patient has correct armband on for positive identification. Bed in low position. Call ko1 light in reach. Side rails up X2. Provided Education on: cardizem drip. Client placed on continuous cardiac and pulse oximetry monitoring. NIBP monitoring applied. library monitor on. Door closed. Noise minimized. Lights dimmed. Warm blanket given. 15:30 No provider procedures requiring assistance completed. ko1 16:24 Patient admitted, IV remains in place. ko1 Administered Medications: 14:25 Drug: Diltiazem IVP 10 mg Route: IVP; Site: right antecubital; ko1 15:25 Drug: Diltiazem IV 5 mg/hr Route: IV; Rate: 5 mg/hr; Site: right antecubital; ko1 15:40 Follow up: Response: No adverse reaction; Cardiac rhythm is unchanged; Rate change 10 ko1 mg/hr Medication: 15:30 VIS not applicable for this client. ko1 Outcome: 15:21 Decision to Hospitalize by Provider. snw 16:24 Admitted to ICU accompanied by nurse, via stretcher, room 1, on monitor, with chart, ko1 Report called to LYNNETTE Metcalf 16:24 Condition: stable 16:24 Instructed on the need for admit, Demonstrated understanding of instructions. 16:31 Patient left the ED. ko1 Signatures: Dispatcher [employer] EDMS Deanne Yu, WIRE TWISTING MACHINE OPERATOR-C WIRE TWISTING MACHINE OPERATOR-Csnw Imelda Perry RN RN ss Kalie Russell MD MD sp3 Samantha West RN RN ko1 Amarilys Sanches RN RN mb9 Comfort Evans Corrections: (The following items were deleted from the chart) 14:20 14:15 THYROID STIMULAT HORMONE+C.LAB.BRZ drawn and sent. ko1 EDMS 14:35 14:30 Home Meds: atenolol 100 mg Oral tab 1 tab once daily; ko1 ko1 14:35 14:30 Home Meds: metformin 500 mg Oral tab 2 times per day; ko1 ko1 14:35 14:30 Home Meds: Eliquis oral; ko1 ko1
--- NOTE | 2023-06-23 15:21 | EDPHYS ---
Physician Documentation [facility] Name: El Zaidi Age: 52 yrs Sex: Male : 1970 Arrival Date: 06/23/2023 Time: 13:52 Bed 4 Private MD: ED Physician Kalie Russell HPI: 06/23 14:09 This 52 yrs old Male presents to ER via Wheelchair with complaints of Sent by Dr.Raslan chowdhury for A-fib. 14:09 The patient has shortness of breath at rest, and the patient has a history of a. fib. snw Onset: The symptoms/episode began/occurred at 10:00. Duration: The symptoms are continuous. Severity of symptoms: At their worst the symptoms were moderate. The patient has experienced similar episodes in the past, since initial episode a couple of months ago. sent per Dr. Brewer. 15:22 The patient's shortness of breath is aggravated by etoh abuse. snw Historical: - Allergies: 14:07 No Known Allergies; mb9 - Home Meds: 14:30 atorvastatin 40 mg Oral tab 1 tab once daily [Active]; losartan-hydrochlorothiazide ko1 100-25 mg Oral tab 1 tab once daily [Active]; Ozempic 2 mg/dose (8 mg/3 mL) subcutaneous Pen Injector every week [Active]; Farxiga 10 mg oral tablet daily [Active]; Sotalol Oral 2 times per day [Active]; - PMHx: 14:07 diabetes mellitus; Hypertension; Atrial fibrillation; mb9 - PSHx: 14:07 hip replacement; mb9 - Immunization history:: Adult Immunizations up to date. - Social history:: Smoking status: Patient denies any tobacco usage or history of. ROS: 14:08 Constitutional: Negative for fever, chills, and weight loss, Eyes: Negative for injury, snw pain, redness, and discharge, ENT: Negative for injury, pain, and discharge, Neck: Negative for injury, pain, and swelling, Cardiovascular: Negative for chest pain, palpitations, and edema, Abdomen/GI: Negative for abdominal pain, nausea, vomiting, diarrhea, and constipation, Back: Negative for injury and pain, : Negative for injury, bleeding, discharge, and swelling, MS/Extremity: Negative for injury and deformity, Skin: Negative for injury, rash, and discoloration, Neuro: Negative for headache, weakness, numbness, tingling, and seizure, Psych: Negative for depression, anxiety, suicide ideation, homicidal ideation, and hallucinations. 14:08 Respiratory: Positive for shortness of breath, at rest. Exam: 14:07 Constitutional: This is a well developed, well nourished patient who is awake, alert, snw and in no acute distress. Head/Face: Normocephalic, atraumatic. Eyes: Pupils equal round and reactive to light, extra-ocular motions intact. Lids and lashes normal. Conjunctiva and sclera are non-icteric and not injected. Cornea within normal limits. Periorbital areas with no swelling, redness, or edema. ENT: Nares patent. No nasal discharge, no septal abnormalities noted. Tympanic membranes are normal and external auditory canals are clear. Oropharynx with no redness, swelling, or masses, exudates, or evidence of obstruction, uvula midline. Mucous membranes moist. Neck: Trachea midline, no thyromegaly or masses palpated, and no cervical lymphadenopathy. Supple, full range of motion without nuchal rigidity, or vertebral point tenderness. No Meningismus. Chest/axilla: Normal chest wall appearance and motion. Nontender with no deformity. No lesions are appreciated. 14:07 Respiratory: Lungs have equal breath sounds bilaterally, clear to auscultation and percussion. No rales, rhonchi or wheezes noted. No increased work of breathing, no retractions or nasal flaring. Abdomen/GI: Soft, non-tender, with normal bowel sounds. No distension or tympany. No guarding or rebound. No evidence of tenderness throughout. Back: No spinal tenderness. No costovertebral tenderness. Full range of motion. Skin: Warm, dry with normal turgor. Normal color with no rashes, no lesions, and no evidence of cellulitis. MS/ Extremity: Pulses equal, no cyanosis. Neurovascular intact. Full, normal range of motion. Neuro: Awake and alert, GCS 15, oriented to person, place, time, and situation. Cranial nerves II-XII grossly intact. Motor strength 5/5 in all extremities. Sensory grossly intact. Cerebellar exam normal. Normal gait. Psych: Awake, alert, with orientation to person, place and time. Behavior, mood, and affect are within normal limits. 14:07 Cardiovascular: Rate: tachycardic, Rhythm: irregularly irregular, Pulses: no pulse deficits are appreciated, Heart sounds: normal, Edema: is not appreciated, JVD: is not appreciated. Vital Signs: 14:06 Pulse 145; Resp 23; Temp 98.2(O); Pulse Ox 98% on R/A; Weight 95.25 kg; Height 5 ft. 11 mb9 in. ; 14:10 Pulse 127; ss 14:30 BP 143 / 97; Pulse 87; Resp 16; Pulse Ox 96% ; ko1 14:35 BP 150 / 103; Pulse 80; Resp 16; Pulse Ox 96% ; ko1 15:00 BP 149 / 85; Pulse 97; Resp 18; Pulse Ox 96% ; ko1 15:30 BP 136 / 84; Pulse 89; Resp 18; Pulse Ox 97% ; ko1 15:40 BP 131 / 88; Pulse 89; Resp 16; Pulse Ox 95% on R/A; ko1 14:06 Body Mass Index 29.29 (95.25 kg, 180.34 cm) mb9 Krystin Coma Score: 14:14 Eye Response: spontaneous(4). Motor Response: obeys commands(6). Verbal Response: snw oriented(5). Total: 15. MDM: 14:07 Patient medically screened. snw 14:10 ED course: Pt has not missed sotalol or eliquis.. snw 14:14 ED course: Dr. Brewer's service notified of pt arrival. snw 14:53 Data reviewed: vital signs, nurses notes, lab test result(s), EKG, radiologic studies. snw ED course: Cardizem 10mg converted pt temporarily will start drip. 15:16 Differential diagnosis: Anemia Anxiety Reaction asthma, Unstable Angina arrythmia. Data snw interpreted: Pulse oximetry: on room air is 96 %. Interpretation: normal. Management of patient was discussed with the following: Fiberglass Technician: Dr. Brewer in ED, pt's rate is improved post Cardizem push, will start drip. Dr. Brewer would like Sotalol, Eliquis continued and agrees with Cardizem drip for now.. Management of patient was discussed with the following: Hospitalist: Dr. Nelson. Counseling: I had a detailed discussion with the patient and/or guardian regarding: the historical points, exam findings, and any diagnostic results supporting the discharge/admit diagnosis, lab results, radiology results, the need for further work-up and treatment in the hospital. 15:22 Response to treatment: the patient's symptoms have markedly improved after treatment. snw 06/23 14:04 Order name: Basic Metabolic Panel; Complete Time: 14:47 snw 06/23 14:04 Order name: CBC with Diff; Complete Time: 14:33 snw 06/23 14:04 Order name: LFT's; Complete Time: 14:47 snw 06/23 14:04 Order name: Magnesium; Complete Time: 14:47 snw 06/23 14:04 Order name: NT PRO-BNP; Complete Time: 14:47 snw 06/23 14:04 Order name: PT-INR; Complete Time: 14:33 snw 06/23 14:04 Order name: Troponin HS; Complete Time: 14:47 snw 06/23 14:20 Order name: Thyroid Stimulating Hormone; Complete Time: 14:47 EDMS 06/23 16:23 Order name: Basic Metabolic Panel EDMS 06/23 16:23 Order name: Basic Metabolic Panel EDMS 06/23 16:23 Order name: CBC with Automated Diff EDMS 06/23 16:23 Order name: CBC with Automated Diff EDMS 06/23 16:23 Order name: Lipid Profile EDMS 06/23 16:23 Order name: Lipid Profile EDMS 06/23 16:23 Order name: Magnesium EDMS 06/23 16:23 Order name: Magnesium EDMS 06/23 16:23 Order name: Phosphorus EDMS 06/23 16:23 Order name: Phosphorus EDMS 06/23 16:23 Order name: Troponin High Sensitivity EDMS 06/23 16:23 Order name: Troponin High Sensitivity EDMS 06/23 16:23 Order name: Troponin High Sensitivity EDMS 06/23 16:23 Order name: Troponin High Sensitivity EDMS 06/23 14:04 Order name: XRAY Chest (1 view); Complete Time: 14:47 snw 06/23 14:04 Order name: EKG; Complete Time: 14:05 snw 06/23 16:23 Order name: 60g Consistent Carbohydrate (ADA 1800/2000) EDMS 06/23 14:04 Order name: Cardiac monitoring; Complete Time: 14:05 snw 06/23 14:04 Order name: EKG - Nurse/Tech; Complete Time: 14:05 snw 06/23 14:04 Order name: IV Saline Lock; Complete Time: 14:06 snw 06/23 14:04 Order name: Labs collected and sent; Complete Time: 14:06 snw 06/23 14:04 Order name: O2 Per Protocol; Complete Time: 14:05 snw 06/23 14:04 Order name: O2 Sat Monitoring; Complete Time: 14:05 snw EC:05 Rate is 129 beats/min. Rhythm is irregularly irregular. QT interval is normal. T waves snw are Normal. Clinical impression: Atrial Fibrillation. Administered Medications: 14:25 Drug: Diltiazem IVP 10 mg Route: IVP; Site: right antecubital; ko1 15:25 Drug: Diltiazem IV 5 mg/hr Route: IV; Rate: 5 mg/hr; Site: right antecubital; ko1 15:40 Follow up: Response: No adverse reaction; Cardiac rhythm is unchanged; Rate change 10 ko1 mg/hr Disposition Summary: 06/23/23 15:21 Hospitalization Ordered Hospitalization Status: Observation snw Provider: Nicanor Nelson snlaila Location: Intensive Care Unit snw Condition: Stable snw Problem: an acute exacerbation snw Symptoms: have improved snw Bed/Room Type: Standard snw Room Assignment: 1-(06/23/23 15:59) dw Diagnosis - Paroxysmal atrial fibrillation - RVR snw Forms: - Medication Reconciliation Form snw - SBAR form snw Signatures: Dispatcher [employer] Maria C Arroyo RN RN dw Waters, Shelly, FNP-C FRACTIONATING STILL OPERATOR-Csnw Samantha West RN RN ko1 Amarilys aSnches RN RN mb9 Corrections: (The following items were deleted from the chart) 14:20 14:12 THYROID STIMULAT HORMONE+C.LAB.BRZ ordered. [facility] 14:35 14:30 Home Meds: atenolol 100 mg Oral tab 1 tab once daily; ko1 ko1 14:35 14:30 Home Meds: metformin 500 mg Oral tab 2 times per day; ko1 ko1 14:35 14:30 Home Meds: Eliquis oral; ko1 ko1 15:59 15:21 snw dw
--- NOTE | 2023-06-23 15:33 | P.HP ---
Certification for Inpatient Patient admitted to: Observation With expected LOS: <2 Midnights Practitioner: I am a practitioner with admitting privileges, knowledge of patient current condition, hospital course, and medical plan of care. Services: Services provided to patient in accordance with Admission requirements found in Title 42 Section 412.3 of the Code of Federal Regulations Patient History Date of Service: 06/23/23 Reason for admission: Shortness of breath History of Present Illness: 52-year-old gentleman with a history of diabetes, hypertension and atrial fibrillation was directed to the emergency department by his cyber security analyst Dr. Brewer to be evaluated for rapid atrial fibrillation because patient was experiencing shortness of breath and palpitation. Patient was noted to be in rapid atrial fibrillation with heart rate up to 140 in the ED. Initial troponin negative, checks x-ray showed no acute disease. He was given a dose of IV Cardizem after which patient spontaneously converted to sinus rhythm. Rapid atrial fibrillation reoccurred in the ED and patient started on Cardizem drip. Dr. Brewer saw and evaluated patient in the ED and recommended hospitalization for further management. Patient is admitted to the ICU. Allergies No Known Allergies Allergy (Verified 03/08/23 06:48) Home Medications: Atorvastatin Calcium [Lipitor] 40 mg PO BEDTIME 03/08/23 Dapagliflozin Propanediol [Farxiga] 10 mg PO DAILY 03/08/23 Losartan/Hydrochlorothiazide [Losartan-Hctz 100-25 mg Tab] 1 each PO DAILY 03/08/23 Metformin ER [Glucophage ER*] 500 mg PO BEDTIME 03/08/23 Semaglutide [Ozempic] 2 mg SQ EVERY 7TH DAY 03/08/23 Apixaban [Eliquis] 5 mg PO BID 30 Days #60 tab 03/25/23 Sotalol HCl [Sotalol AF] 120 mg PO BID 30 Days #60 tab 03/25/23 - Past Medical/Surgical History Diabetic: Yes -: diabetes -: hypertension -: hyperlipidemia -: TOTAL RIGHT HIP SURGERY - Family History Father -: Liver disease, Other (see notes) Notes: alcholism. passed age 40 Mother -: Heart disease, Lung disease, Other (see notes) Notes: pacemaker, passed mid 60's - Social History Alcohol use: Yes CD- Drugs: No Caffeine use: Yes Review of Systems Other: Except as documented, all other systems reviewed and negative. Physical Examination - Physical Exam General: Alert, In no apparent distress, Oriented x3 HEENT: Mucous membr. moist/pink, Sclerae nonicteric Neck: Supple, JVD not distended Respiratory: Clear to auscultation bilaterally, Normal air movement Cardiovascular: No edema, Normal S1 S2, No murmurs, Irregular heart rate/rhythm Capillary refill: <2 Seconds Gastrointestinal: Normal bowel sounds, Soft and benign, Non-distended, No tenderness Musculoskeletal: No swelling Integumentary: No rashes, No cyanosis Neurological: Normal speech, Normal strength at 5/5 x4 extr, Cranial nerves 3-12 intact Lymphatics: No axilla or inguinal lymphadenopathy - Studies Laboratory Data (last 24 hrs) 06/23/23 06/23/23 06/23/23 14:05 14:05 14:05 WBC 10.90 Hgb 14.4 Hct 42.6 Plt Count 146 L PT 10.8 INR 0.98 Sodium 138 Potassium 4.2 BUN 14 Creatinine 0.85 Glucose 142 H Magnesium 2.1 Total Bilirubin 0.4 AST 29 ALT 47 Alkaline Phosphatase 92 Assessment and Plan - Problems (Diagnosis) (1) Rapid atrial fibrillation Current Visit: Yes Status: Acute (2) Essential hypertension Current Visit: Yes Status: Acute (3) DM type 2 (diabetes mellitus, type 2) Current Visit: Yes Status: Acute (4) Morbid obesity Current Visit: Yes Status: Acute - Plan Patient placed under observation. Continue Cardizem drip started in the ED. Resume home dose sotalol. Resume Eliquis Trend troponin Insulin sliding scale for glucose management. Continue home antihypertensives Cardiology consult. Time Spent Managing Pts Care (In Minutes): 67
[2023-06-23] MEDS ORDERED: ONDANSETRON 4 MG/2 ML VIAL IV PRN (16:21)
[2023-06-23] MEDS ORDERED: ACETAMINOPHEN 500 MG TAB PO PRN (16:21)
--- NOTE | 2023-06-23 16:24 | CON ---
Date of Consultation: 06/23/2023 Reason For Consultation: Atrial fibrillation. History Of Present Illness: A 52-year-old male, history of paroxysmal atrial fibrillation, dyslipide vinod, hypertension. He was on sotalol at home basically, started having palpitations, so he called me and I asked him to come to the emergency room, he was in atrial fibrillation with rapid ventricular response, was given a dose of Cardizem and has converted briefly to sinus and went back into AFib. T he patient has been drinking hard liquor and beer on almost a daily basis. Denies having any chest p ain. Past Medical History: As outlined above in the HPI. Diabetes, hypertension, atrial fibrillation, dy slipidemia. Medications: Refer to reconciliation sheet for detailed list. Allergies: NO KNOWN DRUG ALLERGIES. Family History: No premature coronary artery disease or cancer. Social History: He does not smoke, but he drinks alcohol on daily basis. Does not use any drugs. Review of Systems: All systems reviewed and they were negative except what mentioned in HPI. Physical Examination: Vital Signs: Reviewed. Head and Neck: Pupils are equal, reactive to light. Intact eye movements. No JVD. No cervical lym phadenopathy. Neck is supple. Thyroid is not enlarged. Lungs: Clear to auscultation bilaterally. No rhonchi, wheezing, or crackles. No accessory muscle u se. Heart: Irregularly irregular. No extra sounds. Abdomen: Soft, nontender. Bowel sounds positive. No organomegaly. No masses or hernia. No rigidi ty or rebound. Extremities: No edema, clubbing, or cyanosis. Intact pulses. Skin: No rash. Neurologic: Alert, awake, oriented x3. No acute focal deficits appreciated. Investigations: BUN 14, creatinine 0.8. NT-proBNP is 1255. Troponin is negative and hemoglobin is 14.4. Assessment And Recommendations: 1.Atrial fibrillation with rapid ventricular response. Continue sotalol and Eliquis 5 mg twice a da y, and also put him on Cardizem drip as he was trying to convert to sinus rhythm and once he converts to sinus rhythm, we will plan for starting Cardizem plus the sotalol, and the patient was counseled against drinking likely this is what is putting him back into atrial fibrillation the daily drinking. 2.Hypertension. Blood pressure is elevated. We will be starting IV Cardizem drip and then switch i t to oral form afterwards. 3.Dyslipidemia. Recommend Lipitor 40 mg at bedtime. 4.Elevated NT-proBNP, likely diastolic heart failure. It should improve after he converted to sinus rhythm. SR/MODL Voice ID: [id number] Report ID: [id number]
[2023-06-23] MEDS: INSULIN -REGULAR HUMAN 50 UNIT/0.5 ML ML SQ SCH ×2 (17:13→20:50)
[2023-06-23] MEDS: NA CHLORIDE 0.9% 1,000 ML IV SCH (17:13)
[2023-06-23 17:28] VITALS: BMI 35.3
[2023-06-23] MEDS ORDERED: METOPROLOL TARTRATE 5 MG/5 ML INJ IV STA (17:39)
[2023-06-23] MEDS: APIXABAN 5 MG TABLET PO SCH (20:49)
[2023-06-23] MEDS ORDERED: ATORVASTATIN 40 MG TAB PO SCH (21:00)
[2023-06-23] MEDS ORDERED: SOTALOL HCL 120 MG PO SCH (21:00)
[2023-06-24 04:55] LABS: Absolute Lymphocytes (CBC) 3.4 K/uL (0.7-4.9); Hematocrit 39.9 % (39.6-49.0); Lymphocytes % 36.1 % (15.3-44.8); MCV 91.4 fL (80-100); MPV 7.4 fL (7.6-11.3); Platelets 152 thou/uL (152-406); RBC Red Blood Cell Count 4.37 M/uL (4.33-5.43)
[2023-06-24 05:11] LABS: Magnesium 1.9 mg/dL (1.6-2.4); Phosphorus 3.6 mg/dL (2.5-4.9); Potassium 3.5 mEq/L (3.5-5.1)
[2023-06-24] MEDS: NA CHLORIDE 0.9% 1,000 ML IV SCH (06:41)
[2023-06-24] MEDS ORDERED: POTASSIUM 25 MEQ EFFERV TAB PO ONE (07:00)
[2023-06-24 07:20] VITALS: O2SAT 96
[2023-06-24] MEDS: INSULIN -REGULAR HUMAN 50 UNIT/0.5 ML ML SQ SCH ×2 (08:12→11:30)
[2023-06-24] MEDS: APIXABAN 5 MG TABLET PO SCH (08:13)
[2023-06-24] MEDS ORDERED: LOSARTAN/HCTZ 50-12.5 PO SCH (09:00)
[2023-06-24] MEDS ORDERED: Dapagliflozin Propanediol [Farxiga] 10 MG Tablet PO SCH ×2 (09:00)
[2023-06-24] MEDS ORDERED: DILTIAZEM HCL 120 MG SR CAP PO SCH (11:00)
--- NOTE | 2023-06-24 12:02 | P.DS ---
Admission Date: 06/23/23 Discharge Date: 06/24/23 Disposition: ROUTINE DISCHARGE Discharge Condition: FAIR Reason for Admission: Shortness of breath - Problems (1) Rapid atrial fibrillation Current Visit: Yes Status: Acute (2) Essential hypertension Current Visit: Yes Status: Acute (3) DM type 2 (diabetes mellitus, type 2) Current Visit: Yes Status: Acute (4) Morbid obesity Current Visit: Yes Status: Acute Brief History of Present Illness: 52-year-old gentleman with a history of diabetes, hypertension and atrial fibrillation was directed to the emergency department by his mount loader Dr. Brewer to be evaluated for rapid atrial fibrillation because patient was experiencing shortness of breath and palpitation. Patient was noted to be in rapid atrial fibrillation with heart rate up to 140 in the ED. Initial troponin negative, checks x-ray showed no acute disease. He was given a dose of IV Cardizem after which patient spontaneously converted to sinus rhythm. Rapid atrial fibrillation reoccurred in the ED and patient started on Cardizem drip. Dr. Brewer saw and evaluated patient in the ED and recommended hospitalization for further management. Patient was admitted to the ICU. Hospital Course: Patient hospitalized in the ICU and kept on a Cardizem drip. Sotalol resumed. Patient spontaneously converted to sinus rhythm overnight and Cardizem drip weaned off. Patient remains in sinus rhythm. He was seen and evaluated by cardiology Dr. Brewer who recommended adding oral Cardizem. Patient vitals have been stable with current A-fib regimen. He is deemed stable for discharge. Vital Signs/Physical Exam: Temp Pulse Resp BP Pulse Ox 97.7 F 75 15 113/65 93 06/24/23 08:00 06/24/23 11:41 06/24/23 09:00 06/24/23 11:41 06/24/23 09:00 General: Alert, In no apparent distress, Oriented x3 HEENT: Mucous membr. moist/pink Neck: Supple, JVD not distended Respiratory: Clear to auscultation bilaterally, Normal air movement Cardiovascular: No edema, Regular rate/rhythm, Normal S1 S2 Gastrointestinal: Soft and benign, Non-distended, No tenderness Musculoskeletal: No swelling Integumentary: No rashes, No cyanosis Neurological: Normal strength at 5/5 x4 extr Laboratory Data at Discharge: WBC 9.50 thou/uL (4.3-10.9) 08/11/23 04:31 Hgb 13.5 g/dL (13.6-17.9) L 06/24/23 04:31 Hct 39.9 % (39.6-49.0) 06/24/23 04:31 Plt Count 152 thou/uL (152-406) 06/24/23 04:31 PT 10.8 SECONDS (9.5-12.5) 06/23/23 14:05 INR 0.98 06/23/23 14:05 Sodium 137 mEq/L (136-145) 06/24/23 04:31 Potassium 3.5 mEq/L (3.5-5.1) D 06/24/23 04:31 BUN 13 mg/dL (7-18) 06/24/23 04:31 Creatinine 0.87 mg/dL (0.70-1.30) 06/24/23 04:31 Glucose 188 mg/dL (74-106) H 06/24/23 04:31 Phosphorus 3.6 mg/dL (2.5-4.9) 06/24/23 04:31 Magnesium 1.9 mg/dL (1.6-2.4) 06/24/23 04:31 Total Bilirubin 0.4 mg/dL (0.2-1.0) 06/23/23 14:05 AST 29 U/L (15-37) 06/23/23 14:05 ALT 47 U/L (16-61) 06/23/23 14:05 Alkaline Phosphatase 92 U/L (45-117) 06/23/23 14:05 Triglycerides 199 mg/dL (<150) H 06/24/23 04:31 Cholesterol 145 mg/dL (<200) 06/24/23 04:31 HDL Cholesterol 42 mg/dL (40-60) 06/24/23 04:31 Cholesterol/HDL Ratio 3.45 06/24/23 04:31 Home Medications: Atorvastatin Calcium [Lipitor] 40 mg PO BEDTIME 03/08/23 Dapagliflozin Propanediol [Farxiga] 10 mg PO DAILY 03/08/23 Losartan/Hydrochlorothiazide [Losartan-Hctz 100-25 mg Tab] 1 each PO DAILY 03/08/23 Metformin ER [Glucophage ER*] 500 mg PO BEDTIME 04/25/23 Semaglutide [Ozempic] 2 mg SQ EVERY 7TH DAY 03/08/23 Apixaban [Eliquis] 5 mg PO BID 30 Days #60 tab 03/25/23 Sotalol HCl [Sotalol AF] 120 mg PO BID 30 Days #60 tab 03/25/23 Diltiazem Cd [Cardizem Cd*] 120 mg PO DAILY #30 cap 06/24/23 New Medications: Diltiazem Cd [Cardizem Cd*] 120 mg PO DAILY #30 cap Diet: ADA Activity: Ad joan Followup: Parveen Brewer MD [Primary Care Provider] - 1-2 Weeks Time spent managing pt's care (in minutes): 27
[2023-06-24 12:16] VITALS: TEMP 98.6
[2023-06-24 15:02] VITALS: BP 138/78
--- NOTE | 2023-06-25 10:03 | PN ---
Date of Progress Note: 06/24/2023 Subjective: Seen by bedside, doing well, converted to normal sinus rhythm. Review of Systems: No chest pain, shortness of breath, orthopnea, cough. No nausea, vomiting, diarrhea. All other syst ems are reviewed, they were negative. Objective: Vital Signs: Reviewed. Head and Neck: Pupils are equal, reactive to light. Intact eye movements. No JVD. No cervical lym phadenopathy. Neck: Supple. Thyroid not enlarged. Lungs: Clear to auscultation bilaterally. No rhonchi, rales, or crackles. No accessory muscle use. Heart: Regular rate and rhythm. No extra sounds. Abdomen: Soft, nontender. Bowel sounds positive. No organomegaly. No masses or hernia. No rigidi ty or rebound. Extremities: No edema, clubbing, or cyanosis. Intact pulses. Skin: No rash noted. Neuro: Alert, awake, and oriented x3. No acute focal deficits appreciated. Lymph Nodes: No cervical or axillary lymphadenopathy. Investigations: BUN 30, creatinine 0.87. Troponins are negative and hemoglobin is 13.5. Assessment/recommendation: 1.Atrial fibrillation converted to sinus rhythm. Continue sotalol 80 mg twice a day, Cardizem exten ded release 120 mg by mouth daily, and Eliquis 5 mg twice a day. The patient can be released from Ca rdiology standpoint and follow up with me in the office within a week. He was instructed to stay hussein y from alcohol. 2.Hypertension. Blood pressure is well controlled. The amlodipine he was getting as an outpatient to be replaced with Cardizem and follow up as an outpatient. From Cardiology standpoint, patient can be released. SR/MODL Voice ID: [id number] Report ID: [id number]
--- NOTE | 2023-06-26 15:34 | EKG ---
Test Date: 2023-06-24 Test Time: 00:36:49 Senior Loss Control Specialist: RAMON MEASUREMENT RESULTS: Intervals: Rate: 60 DE: 222 QRSD: 78 QT: 454 QTc: 454 Logan: P: 54 DE: 222 QRS: -36 T: 16 INTERPRETIVE STATEMENTS: Sinus rhythm with 1st degree AV block Left axis deviation Abnormal ECG Compared to ECG 03/25/2023 01:53:02 First degree AV block now present Left ventricular hypertrophy no longer present ST (T wave) deviation no longer present Electronically Signed On 06-26-23 15:31:11 CDT by Parveen Brewer
--- NOTE | 2023-06-27 13:15 | EKG ---
Test Date: 2023-06-23 Test Time: 14:01:18 Manometer Technician: VJ MEASUREMENT RESULTS: Intervals: Rate: 129 IA: QRSD: 76 QT: 334 QTc: 489 [place]: P: IA: QRS: -13 T: 71 INTERPRETIVE STATEMENTS: Afib with RVR ST abnormality, possible digitalis effect Abnormal ECG Compared to ECG 03/25/2023 01:53:02 Sinus rhythm no longer present ST (T wave) deviation still present Electronically Signed On 06-27-23 13:12:44 CDT by Parveen Brewer
== END 2023-06-24 14:50 | disposition home or self-care (01) ==
LOC: ER 13:52 → 3RD-ICU 15:26
PROVIDERS: ADMIT Internal Medicine; ATTEND Internal Medicine
DX: I48.20 Chronic atrial fibrillation, unspecified (principal); E11.9 Type 2 diabetes mellitus without complications; I10 Essential (primary) hypertension; E66.01 Morbid (severe) obesity due to excess calories; E78.5 Hyperlipidemia, unspecified; R79.89 Other specified abnormal findings of blood chemistry; Z68.35 Body mass index [BMI] 35.0-35.9, adult
CPT/HCPCS: 36415; 71045; 80048; 80061; 80076; 82947; 83735; 83880; 84100; 84443; 84484; 85025; 85610; 93005; 96374; 96375; 99285; J1815; J7030